=== PATIENT | male | born 1955 | race Hispanic/Latino ===

== ENCOUNTER 2016-07-14 02:30 | Inpatient (IN) | payer OTHER ==
[2016-07-14] VITALS (8 sets, daily range): BP systolic 85–136; BP diastolic 45–58; PULSE 62–103; RESP 19–28; O2SAT 94–98
[~2016-07-14] VITALS: Ht 175.3 cm; Wt 138.5 kg
[~2016-07-14 02:30] MED LIST: ASPI81TA53 PO; ATOR80TA77 PO; CLOP75TA3 PO; HYDR200T5 PO; LINE600T2 PO; METH2.5T PO; METO50TA3 PO; PRD5T PO; RANI300T4 PO
[2016-07-14] MEDS ORDERED: Linezolid Inj 600 MG in IV Premix 1 EACH IV ONE (03:05)
[2016-07-14] MEDS ORDERED: Clindamycin Inj 900 MG in IV Premix 1 EACH IV ONE (03:05)
[2016-07-14] MEDS ORDERED: Meropenem Inj 1,000 MG in 0.9% Sodium Chloride 100 ML IV ONE (03:05)
[2016-07-14 03:06] LABS: BASOPHILS % (AUTO) 0.1 % (0-3); EOSINOPHILS % (AUTO) 0.4 % (0-5); Mean Corpuscular Volume 91.6 fL (81-100); NEUTROPHILS % (AUTO) 82.4 % (40-74); Platelet Count 169 bil/L (150-400)
[2016-07-14] MEDS ORDERED: Ondansetron 2 mg/mL 2 mL Inj ONE ×2 (03:07→04:04)
[2016-07-14] MEDS ORDERED: Lactated Ringer's 1,000 ML IV ONE (03:09)
--- NOTE | 2016-07-14 03:11 | ED.REPORT ---
HPI-General Illness Date of Service Jul 14, 2016 ED Provider: Mahad Orona MD Patient is a 61 year old male with a history of diabetes mellitus, rheumatoid arthritis on chronic Prednisone, obstructive sleep apnea on CPAP, peripheral vascular disease, coronary artery disease with prior SC and cardiac stenting and lower extremity cellulitis positive for strep who presents to the ED with right leg swelling and pain that began last night. He reports fever at home of 102.7F (afebrile in the ED), chills, and increased pain tonight. He also developed shortness of breath this evening, especially with exertion. He admits to nausea but denies chest pain, abdominal pain, or cough. Nursing Notes Stated Complaint: R LEG INFECTION Chief Complaint: General Complaint Nursing Notes Reviewed: Yes Allergies: Coded Allergies: No Known Allergies (Verified Allergy, Unknown, 10/18/14) No Known Drug Allergies (Verified Allergy, Unknown, 07/14/16) Scheduled Aspirin (Aspir-Low) 81 Mg Tablet.dr 81 MG PO DAILY Atorvastatin Calcium (Atorvastatin Calcium) 80 Mg Tablet 80 MG PO HS Clopidogrel Bisulfate (Plavix) 75 Mg Tablet 75 MG PO Q48 Hydroxychloroquine Sulfate (Hydroxychloroquine Sulfate) 200 Mg Tablet 200 MG PO BID Linezolid (Zyvox) 600 Mg Tablet 600 MG PO BID Methotrexate Sodium (Methotrexate) 2.5 Mg Tablet 6 TAB PO QW Metoprolol Tartrate (Metoprolol Tartrate) 50 Mg Tablet 50 MG PO BID Prednisone (PredniSONE) 5 Mg Tab 5 MG PO DAILY Ranitidine (Ranitidine) 300 Mg Tablet 300 MG PO BID General Time Seen by MD: 02:39 Chief Complaint Other (right leg swelling and pain) Hx Obtained From: Patient Arrived By: Walk-in Sudden in Onset?: No Onset Occurred: Yesterday Symptom Duration: Since onset Location: : Leg right Quality: Painful Severity: Current: Moderate Severity: Maximum: Moderate Recent Healthcare: No recent doctor visit, No recent hospitalization Similar Sx Previous: Yes Past Medical History Past Medical History coronary artery disease with prior SC Rheumatoid arthritis venous insufficiency arthritis Reports: Diabetes mellitus, Hyperlipidemia, Hypertension Past Surgical History 2 cardiac stent placements Smoking History Former Smoker Social History Alcohol Use: Denies alcohol use Drug Use: Denies drug use Other Social History: Ambulatory Status Independent Review of Systems Full Review of Systems Constitutional: Reports: Chills, Fever Respiratory: Reports: Parox nocturnal dyspnea, Shortness of breath Cardiovascular: Denies: Chest pain GI: Reports: Nausea Musculoskeletal: Reports: Extremity pain, Extremity swelling Complete sys rev & neg: except as marked. Physical Exam Vital Signs Vital Signs Date Time Temp Pulse Resp B/P Pulse Ox O2 Delivery O2 Flow Rate FiO2 07/14/16 03:06 62 24 85/45 96 Room Air 07/14/16 02:34 36 70 24 85/55 95 Room Air Initial VS: Reviewed Skin: Warm, Dry, No cyanosis Neurologic: Alert, Oriented, Nonfocal Psychiatric: Mood/affect normal, Behavior normal, Normal thought content General/Constitutional: Awake, Alert, No acute distress Appearance / Presentation: Positive: Obese Head / Eyes: Normocephalic, PERRL, EOMI ENT: Airway patent Neck: Supple, No JVD Respiratory / Chest: Breath sounds NL, Breath sounds = bilat, No respiratory distress, No rales, No rhonchi, No wheezing Cardiovascular: Heart rate NL, Regular rhythm, Heart sounds NL, Peripheral circulation NL (intact distal pulses) Abdomen: Soft, Non-tender, No guarding, No rebound Upper Extremities Upper Extremity / MS: Neurologic intact, Vascular intact, No edema Lower Extremity / Pelvis / MS: Neurologic intact, Vascular intact Fat, swollen, and red right lower extremity extending up past the knee to the thigh, with a lymphangitic streak up the lateral right thigh. Left thigh is chronically red and swollen, with changes confined to the calf and ankle. Chronic venous stasis changes. Fungal infection on bilateral feet. Interpretation & Diagnostics Interpretation & Diagnostics: NEGATIVE FOR INFLUENZA TYPE A AND B Lab Results Interpretation Result Diagram: 07/14/16 0248 07/14/16 0248 Test 07/14/16 02:48 White Blood Count 16.7th/mm3 (3.8-10.1) Red Blood Count 5.33mil/mm3 (4.40-5.80) Hemoglobin 16.5g/dL (13.8-17.2) Hematocrit 48.8% (41.0-50.0) Mean Corpuscular Volume 91.6fL (81-100) Mean Corpuscular Hemoglobin 31.0pg (27.0-35.0) Mean Corpuscular Hemoglobin Concent 33.8% (32.0-37.0) Red Cell Distribution Width 14.4% (12.3-15.4) Platelet Count 169bil/L (150-400) Neutrophils (%) (Auto) 82.4% (40-74) Lymphocytes (%) (Auto) 8.0% (14-46) Monocytes (%) (Auto) 8.0% (4-12) Eosinophils (%) (Auto) 0.4% (0-5) Basophils (%) (Auto) 0.1% (0-3) Erythrocyte Sedimentation Rate 1mm/hr (0-30) Prothrombin Time 11.3sec (8.1-12.5) Prothromb Time International Ratio 1.05ratio Activated Partial Thromboplast Time 23.3sec (22.8-33.0) D-Dimer 1.7mg/L (<0.50) Sodium Level 139mEq/L (134-144) Potassium Level 3.5mEq/L (3.5-5.2) Chloride Level 104mEq/L (97-108) Carbon Dioxide Level 19mmol/L (18-29) Blood Urea Nitrogen 21mg/dL (6-24) Creatinine 1.10mg/dL (0.76-1.27) Estimat Glomerular Filtration Rate 73mL/min (>59) Glucose Level 138mg/dL (60-99) Calcium Level 8.6mg/dL (8.5-10.1) Phosphorus Level 1.2mg/dL (2.5-4.9) Magnesium Level 1.6mg/dL (1.6-2.6) Total Bilirubin 2.1mg/dL (0.0-1.2) Aspartate Amino Transf (AST/SGOT) 29U/L (0-50) Alanine Aminotransferase (ALT/SGPT) 35U/L (0-44) Alkaline Phosphatase 74U/L (25-160) Troponin T 0.010ug/L (0.0-0.011) Pro-B-Type Natriuretic Peptide 308.0pg/mL (0-210) Total Protein 6.6g/dL (6.4-8.4) Albumin 3.8g/dL (3.4-5.0) Lipase 30U/L (13-60) ECG Interpretation ECG Interpretation: Sinus Rhythm, Rate 66 Time: 02:47 Interpreted by: ED physician Normal ECG Interpretation: No acute ischemic changes X-Ray Chest Interpretation Chest Xray Interpretation: Impression: No pneumonia. Mild pulmonary congestion. View: Portable Interpretation / Wet Read by: Wet read ED physician Chest Xray Interpretation: Impression: Line in good position. No pneumothorax. Pulmonary congestion. View: Portable Interpretation / Wet Read by: Wet read ED physician Procedures Central Line Placement Central Line Placement Note: with ultrasound assist Time: 03:33 Procedure Performed by: ED physician Consent / Setup / Site Prep: Consent from patient (verbal unable to sign), Time-out performed, Oxygen administered, Pulse oximeter applied, secured entrance monitor applied, Hand hygiene observed, Standard surgical scrub, Max barrier precaution, Sterile drapes applied, Position supine, Position Trendelenburg Skin Preparation Agent: Hibiclens - Chlorhexidine Local Anesthesia: Lidocaine 1% Side / Location / Ultrasound: Internal jugular right (2nd attempt), Subclavian right (1st attempt, failed) Catheter / Lumen / Technique: Catheter size (7 Fr x 20 cm Power Injectable) , Triple lumen, Seldinger technique, Good blood return, Secured w catheter device Central Line Tip Location: Cath tip good position in the SVC Post-Procedure / Complications: Dressing placed, CXR neg for pneumothorax, Condition improved, Tolerated procedure well, Patient stable, Not stable post- procedure Re-Eval/Medical Decision Med Decision/Clinical Course 61-year-old with steroid-dependent arthritis, also methotrexate, diabetes, coronary disease, presents with fever chills cellulitis of the right leg and hypotension. He has elevated lactate, and has been quite resistant to fluid resuscitation. He received antibiotics promptly for his cellulitis after cultures were obtained. These included Zosyn linezolid and clindamycin. He remained borderline hypotensive and required pressor support. At that point a central line was placed in the right IJ position as detailed above. Subclavian was first attempted but unsuccessfully due to his bulk. No pneumothorax was seen on x-ray and the line is in good position. Even a single dose of Solu-Cortef 100 mg for presumptive adrenal suppression. He is admitted to the ICU to the medicine service. Source of Hx: Old records Time of Eval: 03:23 Re-Evaluation/Progress Note: Patient is becoming increasingly hypotensive, now at 63/47 after receiving fluids. He is also bradycardic at 50. He is started on Dopamine. Informed the patient and his son of the plan to admit him to the hospital for further care. Will need to place a central line in the ED. Time of Eval: 03:33 Re-Evaluation/Progress Note: Central line placed. Time of Eval: 04:20 Patient Status: Condition improved Re-Evaluation/Progress Note: Rechecked the patient, who has improved vital signs after central line placement. Consultation : Referral / Consult Name: Hao Peacock MD Consulted With: Hospitalist Call Returned at: 04:16 [place]: Will see patient, Agrees with eval, Agrees with plan, Accepts admit Note: Spoke with Dr. Peacock, hospitalist, who agrees to accept admit. Counseled Regarding: Diagnosis, Lab results, Need for admission Discharge & Departure Shift Change Sign-Out Response to Therapy: Improved Primary Impression: Cellulitis of right lower extremity Additional Impressions: Sepsis Sepsis type: sepsis due to unspecified organism Qualified Code: A41.9 - Sepsis, unspecified organism Hypotension Hypotension type: unspecified hypotension type Qualified Code: I95.9 - Hypotension, unspecified Septic shock Steroid dependence Immunosuppression Disposition: ADMITTED TO HOSPITAL Discharge Condition All VS Reviewed: Yes Condition: Critical Referrals: МАРИЯ TOBAR MD (PCP) Crit Care Except Billable Proc Time Spent: 30-74 minutes (1 hour) Services Performed: Patient management by me, Time spent at bedside, Reviewing test results, Reviewing imaging, Discussing patient care, Documentation in record, Time with fam/surrogate Scribe Attestation Portions of this note were transcribed by Edith Ramos. I, Dr. Orona personally performed the history, physical exam and medical decision-making; I reviewed and confirmed the accuracy of the information in the transcribed note. Signed by: Wayne Logan, 07/14/2016 0548 copies to: МАРИЯ TOBAR MD, Christopher W MD Jul 14, 2016 03:11 Edith Ramos Jul 14, 2016 03:31
[2016-07-14] MEDS: Lactated Ringer's 1,000 ML IV SCH ×8 (03:17→20:44)
[2016-07-14 03:21] LABS: TROPONIN T 0.01 ug/L (0.0-0.011)
[2016-07-14] MEDS ORDERED: DOPamine 800 mg/250 mL D5W Premix IV ONE ×2 (03:23→13:29)
[2016-07-14 03:36] LABS: INR 1.05 ratio
[2016-07-14 03:45] LABS: Magnesium 1.6 mg/dL (1.6-2.6); Phosphorus 1.2 mg/dL (2.5-4.9)
[2016-07-14] MEDS ORDERED: Lactated Ringer's 1,000 ML IV PRN (04:16)
[2016-07-14] MEDS ORDERED: Norepineph 8,000 mCg/250 mL NS 8,000 MCG in IV Premix 1 EACH IV PRN (04:16)
[2016-07-14] MEDS ORDERED: Acetaminophen IV 1,000 MG in IV Premix 1 EACH IV PRN (04:20)
[2016-07-14] MEDS ORDERED: Promethazine 12.5 mg/50 mL-NS 12.5 MG in IV Premix 1 EACH IV ONE (04:25)
[2016-07-14] MEDS ORDERED: Promethazine Inj 12.5 MG in Dextrose 5% 50 ML IV ONE (04:30)
[2016-07-14] MEDS ORDERED: Hydrocortisone 50 mg/mL 2 mL Inj IVPUSH ONE ×2 (04:35→05:50)
[2016-07-14] MEDS ORDERED: 0.9% Sodium Chloride 1,000 ML IV ONE ×2 (05:00→09:30)
--- NOTE | 2016-07-14 05:44 | PCM.HPMED ---
Subjective Date of Service Jul 14, 2016 Primary Provider: Admitting Physician: Hao Peacock MD Primary Care Physician: Vanesa Pennington MD Attending Physician: Hao Peacock MD Admit Status: From the Emergency Department, Critical Care Chief Complaint: Leg swelling and feeling sick History of Present Illness: Faizan Christine is a 61 year old male with Diabetes mellitus, rheumatoid arthritis on Prednisone, obstructive sleep apnea on CPAP, peripheral vascular disease, coronary artery disease with prior NV and cardiac stenting who presents to [facility] Emergency department with right leg swelling and pain that began last night. Associated symptoms includes fever at home of 102.7F and chills, and increased pain tonight. He also reports developed shortness of breath this evening, especially with exertion. He admits to nausea but denies chest pain, abdominal pain, or cough. Denies any trauma on the leg and no insect bites or scratching. Family reported that the patient was confused and not himself tonight. He was at baseline 2 days ago and went to work. Patient had prior history of cellulitis in 2014. He has Rheumatoid arthritis and is on immunosuppressant agents including daily Prednisone. Case discussed with Dr Orona, Hypotension on admission, fluids given and eventually Dopamine started. Broad spectrum antibiotics started, Influenza test negative. Review of Systems: Pertinent positives as noted in HPI. All other systems were reviewed and are negative Allergies Coded Allergies: No Known Allergies (Verified Allergy, Unknown, 10/18/14) No Known Drug Allergies (Verified Allergy, Unknown, 07/14/16) Home Medications From [facility], not yet confirmed Faizan Christine [id number] 1955 02/18/2016 01:40 PM 06/30 Aspirin Low Dose 81 mg tablet,delayed release take 1 tablet by oral route every day atorvastatin 80 mg tablet take 1 tablet by oral route every day at bedtime hydrocodone 5 mg-acetaminophen 325 mg tablet take 1 - 2 Tablet by oral route every 4 - 6 hours as needed for pain hydroxychloroquine 200 mg tablet take 1 tablet by oral route 2 times every day lisinopril 5 mg tablet take 1 tablet by oral route every day methotrexate sodium 2.5 mg tablet Take 6 tablets by mouth weekly metoprolol tartrate 50 mg tablet take 1 tablet by oral route 2 times every day with meals Plavix 75 mg tablet take 1 tablet by oral route every 2 days to prevent blood clots prednisone 5 mg tablet take 1 tablet by oral route every day ranitidine 300 mg tablet take 1 - 2 Tablet by oral route every day PMH 1. Rheumatoid arthritis. 2. Coronary artery disease s/p Drug eluting stent 3. Obstructive sleep apnea, on CPAP. 4. Hyperlipidemia 5. 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 Hx Alcohol Use: No Hx Substance Use: No Hx Tobacco Use: Yes Smoking Status: Former Smoker Living Arrangement: with Family Exam Vital Signs Vital Sign - Last Date Time Temp Pulse Resp B/P Pulse Ox O2 Delivery O2 Flow Rate FiO2 07/14/16 03:06 62 24 85/45 96 Room Air 07/14/16 02:34 36 Intake and Output 07/13/16 07/13/16 07/14/16 Cumulative From/Thru 15:00 23:00 07:00 07/14/16 02:34 - 07/14/16 03:01 Intake Total 1000 ml 1000 ml Balance 1000 ml 1000 ml Intake IV Total 1000 ml 1000 ml Exam General: Alert, Oriented X3, Cooperative, No acute Distress Eyes: PERRLA, Scleral Anicteric Mouth: Mouth Normal, Mucous Membranes Moist/[place] Neck: Supple, no Thyromegaly, trachea central. Chest & Lungs: Clear to auscultation & percussion, No adventitious breath sounds, no crackles, no wheeze Cardiovascular: Normal S1, Normal S2, No Murmurs/Rubs/Gallops, Regular Rate/ Rhythm, (No JVD, no peripheral edema) Pulses: Radial (present and equal), Dorsalis Pedi (present and equal) Abdomen: Soft, Non-tender, Non-distended, Normoactive bowel tones. Musculoskeletal: Unremarkable. Normal range of motion, no swollen or erythematous joints Extremities: No edema, no cyanosis, no clubbing. Skin: Right leg cellulitis with erythema, venous stasis changes in both legs Neurological: Grossly neurologically intact, Normal Speech, Sensation Intact Lymphatic: Lymph nodes Cervical and Axillary not palpable. Lab and Diagnostics Labs Laboratory Tests Test 07/14/16 02:48 White Blood Count 16.7th/mm3 (3.8-10.1) Red Blood Count 5.33mil/mm3 (4.40-5.80) Hemoglobin 16.5g/dL (13.8-17.2) Hematocrit 48.8% (41.0-50.0) Mean Corpuscular Volume 91.6fL (81-100) Mean Corpuscular Hemoglobin 31.0pg (27.0-35.0) Mean Corpuscular Hemoglobin Concent 33.8% (32.0-37.0) Red Cell Distribution Width 14.4% (12.3-15.4) Platelet Count 169bil/L (150-400) Neutrophils (%) (Auto) 82.4% (40-74) Lymphocytes (%) (Auto) 8.0% (14-46) Monocytes (%) (Auto) 8.0% (4-12) Eosinophils (%) (Auto) 0.4% (0-5) Basophils (%) (Auto) 0.1% (0-3) Erythrocyte Sedimentation Rate 1mm/hr (0-30) Prothrombin Time 11.3sec (8.1-12.5) Prothromb Time International Ratio 1.05ratio Activated Partial Thromboplast Time 23.3sec (22.8-33.0) D-Dimer 1.7mg/L (<0.50) Sodium Level 139mEq/L (134-144) Potassium Level 3.5mEq/L (3.5-5.2) Chloride Level 104mEq/L (97-108) Carbon Dioxide Level 19mmol/L (18-29) Blood Urea Nitrogen 21mg/dL (6-24) Creatinine 1.10mg/dL (0.76-1.27) Estimat Glomerular Filtration Rate 73mL/min (>59) Glucose Level 138mg/dL (60-99) Lactic Acid Level 2.9mmol/L (0.4-2.0) Calcium Level 8.6mg/dL (8.5-10.1) Phosphorus Level 1.2mg/dL (2.5-4.9) Magnesium Level 1.6mg/dL (1.6-2.6) Total Bilirubin 2.1mg/dL (0.0-1.2) Aspartate Amino Transf (AST/SGOT) 29U/L (0-50) Alanine Aminotransferase (ALT/SGPT) 35U/L (0-44) Alkaline Phosphatase 74U/L (25-160) Troponin T 0.010ug/L (0.0-0.011) Pro-B-Type Natriuretic Peptide 308.0pg/mL (0-210) Total Protein 6.6g/dL (6.4-8.4) Albumin 3.8g/dL (3.4-5.0) Lipase 30U/L (13-60) Microbiology 07/14/16 Blood Culture, Received Pending 07/14/16 Influenza Screen - Final, Complete Result Diagram: 07/14/168 07/14/168 Assessment & Plan Faizan Christine is a 61 year old male with Diabetes mellitus, rheumatoid arthritis on Prednisone, obstructive sleep apnea on CPAP, peripheral vascular disease, coronary artery disease with prior NV and cardiac stenting who presents to [facility] Emergency department with Right Leg cellulitis with Septic shock, currently managed in the ICU 1. Septic shock. Present on admission Meeting SIRS criteria with leukocytosis, hypotension with source skin infection. Patient hypotensive on admission, non responsive to IV fluids resuscitations and was started on Pressors. Hypotension likely combination of dehydration, antihypertensive medications and possible Adrenal insufficiency. Several evidence of organ dysfunction with lactic acidosis, hypotension and mild encephalopathy - IV fluids resuscitations - Hydrocortisone 100 mg IV - Levophed drip with goal MAP > 65 2. Acute Right lower extremity cellulitis. Present on admission Prior cellulitis with Strep in 2014, treated with Linezolid. Patient is immunocompromised from treatment for Rheumatoid infection. Unclear why patient has recurrent cellulitis. - continuing Linezolid IV - keep leg elevated - consider Infectious Disease consultation 3. Lactic acidosis. Present on admission - Due to tissue hypoxia from infection - trending till levels normalize 4. Rheumatoid arthritis - continue steroids at usual home dose, and Plaquenil. - hold Methotrexate 5 Coronary artery disease, s/p stents 2006. Appears to be stable. No anginal or equivalent complaints - Continue statin Aspirin and Plavix - holding Metoprolol and Lisinopril 6 Obstructive sleep apnea with Morbid Obesity Requested that family bring in CPAP machine. - Acetaminophen as needed for mild pain/fever/headache - Bowel regimen as needed - Antiemetic as needed Patient admitted under inpatient status with expected length of stay > 2 midnights for severity of present symptoms, complexities of treatment plan and risk for adverse event . Resuscitation Status: CPR: Attempt Resuscitation Time spent 1 hour critical care time Hao Peacock MD Jul 14, 2016 04:28
--- NOTE | 2016-07-14 06:08 | ABG ---
DateTimeAnalyzed 06:03:00 -_ pH ____7.297 - 7.350 7.450 pCO2 ___45.6__ -mmHg 35.0 45.0 pO2 ___43.4__ -mmHg 69.0 116 HCO3- ___21.6__ -mmol/L 22.0 26.0 ABE ___-4.6__ -mmol/L -2.0 2.0 tHb ___15.7__ -g/dL O2Hb ___74.8__ -% COHb ____0.6__ -% MetHb ____0.8__ -% sO2 ___75.9__ -% 25.0 FIO2 ___35.0__ -% Drawn By MM - Date/Time Notified____ 06:08:00 -_ Liter_Flow ____4.0__ -L/min Oxygen Device 1 SIMP MASK - Notified By MM - Notified Whom RN - B 743 -mmHg tO2 ___16.4__ -Vol% Usama test _Positive -
[2016-07-14] MEDS ORDERED: 0.9% Sodium Chloride 0 ML ONE (07:13)
[2016-07-14] MEDS ORDERED: Potassium Phos (mEq) Inj 40 MEQ in Dextrose 5% 500 ML IV ONE (07:25)
--- NOTE | 2016-07-14 07:38 | NUR ---
Pt admitted from ED with RLE cellulitis and sepsis, with elevated Lactic acid and hypotension. Received ~6 liters in ED for volume resuscitation and dopamine at 7.5 mcg/kg/min to help with blood pressures. Was nauseous and received iv zofran with minimal effect so a phenergan gtts infused with good effect. Came to CCU around 0445 tachycardic, a febrile, hypotensive and low saturations in the mid to upper 80's. Oxy mask placed on patient and sat's improved minimally. ABG obtained and 7.29, 46, 43.4,21.6 So pt placed on non-rebreather to help oxygenation, awaiting another ABG to determine improvement. Son and daughter at bedside initially, son left and daughter still at bedside. Lowery inserted with good urine output, 650 ml's. Right IJ placed in ED and is oozing at site, oncoming RN notified. Will continue to support and monitor.
[2016-07-14] MEDS: Heparin 5,000 Unit/mL Inj SUBQ SCH ×2 (07:58→16:26)
[2016-07-14] MEDS ORDERED: Influenza (Adult) Vaccine 0.5 mL Syringe IM ONE (08:30)
[2016-07-14] MEDS ORDERED: Linezolid Inj 600 MG in IV Premix 1 EACH IV SCH (08:30)
[2016-07-14 09:22] LABS: APPEARANCE,URINE HAZY (CLEAR,HAZY); COLOR,URINE STRAW (YELLOW); OCCULT BLOOD,URINE TRACE (NEGATIVE); UROBILINOGEN,URINE NORMAL (NORMAL)
[2016-07-14] MEDS ORDERED: cefTRIAXone Inj 2,000 MG in IV Premix 1 EACH IV SCH (10:05)
--- NOTE | 2016-07-14 10:15 | DRSVH ---
PROCEDURE: X-RAY CHEST ONE VIEW, PORTABLE ([id number]) INDICATIONS: weakness TECHNIQUE: One view of the chest was acquired. COMPARISON: None. FINDINGS: Surgical changes and devices: None. Lungs and pleura: No pleural effusions or pneumothorax. Lungs are clear and interstitial is promine nt. Mediastinum: Mediastinal contours appear normal. Heart size is normal. Bones and chest wall: No suspicious bony lesions. Overlying soft tissues appear unremarkable. IMPRESSION: Prominent interstitium and developing edema or atypical infection cannot be excluded. Co rrelate clinically. Dictated by: Shady Willis RRA Interpreted: Zaria Martinez MD on 07/14/2016 at 10:15 Transcribed by: RACHEL on 07/14/2016 at 10:15 Approved by: Zaria Martinez MD, PhD on 07/14/2016 at 16:34
--- NOTE | 2016-07-14 10:18 | DRSVH ---
PROCEDURE: X-RAY CHEST ONE VIEW, PORTABLE ([id number]) INDICATIONS: CENTRAL LINE PLACEMENT TECHNIQUE: One view of the chest was acquired. COMPARISON: [facility], CR, XR CHEST 1VW (PORTABLE), 07/14/2016, 2:37. FINDINGS: Surgical changes and devices: Right IJ CVL has been placed tip projected over the mid to lower SVC Lungs and pleura: Moderate, diffuse bilateral interstitial opacities are present. Mediastinum: Mediastinal contours appear normal. Heart size is prominent. Bones and chest wall: No suspicious bony lesions. Overlying soft tissues appear unremarkable. IMPRESSION: 1. Placement of right IJ CVL. 2. Pulmonary edema versus atypical infection increased from prior examination. Correlate clinically. Dictated by: Shady Willis RRA Interpreted: Zaria Martinez MD on 07/14/2016 at 10:18 Transcribed by: RACHEL on 07/14/2016 at 10:18 Approved by: Zaria Martinez MD, PhD on 07/14/2016 at 16:34
--- NOTE | 2016-07-14 10:39 | NUR ---
Infection Prevention Patient placed in contact and droplet precautions due to diagnosis of invasive group A streptococcal infection per Dr. Funez.
--- NOTE | 2016-07-14 11:00 | CONS ---
[address] [address] CONSULTATION REPORT PATIENT: CLEMENT SEGAL : 1955 MR#: [id number] ADMIT: 07/14/2016 JOB ID: [id number] DATE OF SERVICE: 07/14/2016 INFECTIOUS DISEASE CONSULTATION: I thank Dr. Usaam Butler for this consult. REASON FOR CONSULTATION: Right lower extremity streptococcal cellulitis with septic shock. HISTORY OF PRESENT ILLNESS: The patient is a 61-year-old gentleman well known to me from a prior admission during which he was admitted with a severe cellulitis which was found to be on the basis of group A strep. He recovered from that which occurred a couple years ago. In the intervening two years he has had one additional episode of very severe cellulitis of the right lower extremity. Both the patient and his tell us that this occurs about once a year. About three weeks ago, the patient noticed increase in his bilateral lower extremity edema which was more on the right than the left. This is a common situation for the patient. 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 This progressed overnight and the patient's adult son brought him to the hospital where he was admitted today. At the time of admission, he was found to be febrile as well as hypotensive. Broad-spectrum antibiotics were started and he was admitted to the ICU with fluid boluses and IV dopamine going. This morning we were able to interview the patient, who is awake though will little bit sleepy perhaps. He tells us he was feeling really quite well until late yesterday with the sudden onset of the right lower extremity pain, fevers, chills and diffuse weakness which led to his admission this morning. He notes that his legs swell and then get better on an on-and-off basis and that at least once a year or more his right lower extremity turns hot and tender which at least on some occasions has led to admission to the hospital for IV antibiotics as well as sometimes outpatient oral antibiotics. The patient tries to keep his legs up but he is a business analyst manager so it is hard for him to do that during the day. He also tries to keep his legs moist and sometimes wears compression stockings to help with this situation. In association with his admitting symptoms, he had some mild shortness of breath, some nausea but without vomiting and no significant headache or neurologic complaint. PAST MEDICAL HISTORY: 1. Coronary artery disease status post stents. 2. Rheumatoid arthritis for which he receives methotrexate and oral steroids. He has also been treated in the past with hydroxychloroquine for his RA. 3. Obstructive sleep apnea. 4. Hyperlipidemia. 5. Morbid obesity with BMI 50. 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 He was a smoker until 2004, then quit. He does not drink alcohol and lives with his family in the local area. FAMILY HISTORY: Negative for tuberculosis. REVIEW OF SYSTEMS: The patient has no headache or visual change. He denies sore throat. No trouble swallowing. He has minimal shortness of breath without significant cough. He has no abdominal pain or vomiting but has had some nausea. No difficulty with urination, nocturia, urgency, frequency, dysuria. He has chronic swelling of both lower extremities, always worse on the right and the above-mentioned history of cellulitis starting in the right leg. PHYSICAL EXAMINATION: Reveals an afebrile gentleman, temperature 37.9. He has been afebrile since he came into the ED around midnight. Actually he was initially hypothermic at 36, he is now at 36.9. Pulse 95, respiratory rate 24, blood pressure 118/58, saturating well but on a non-rebreather mask this morning. He is a bit groggy but easily arouses and is lucid and able to offer a history. He has had no evidence of head trauma. His eyes are without conjunctivitis or scleral icterus. Extraocular movements are normal. Oral cavity: No thrush or hairy leukoplakia. Mucous membranes are dry from the mask. No cervical adenopathy. Lungs relatively clear anteriorly. Cardiac tones: Regular rate and rhythm with no significant murmur. Abdomen is quite obese but soft and nontender without organomegaly. The scrotum, testes, penis appear normal. No inguinal adenopathy was appreciated. Bilateral lower extremity edema below the knees is present with venous stasis changes. In the feet there are diminished but palpable arterial pulses. Capillary refill in both feet is a bit slow. On the right lower extremity below the knee, there is an erythrodermic hue to the skin and this erythema is confluent from the knee to the ankle. It is quite warm and tender to the touch. No bullae or blistering are seen. The patient is neurologically intact. Labs include white count 16,700, 82% segs. Creatinine is 1.1. Note that when he was seen here a couple years ago with cellulitis his creatinine was 2.5, so it is dramatically better for whatever reason. His LFTs are normal except for a bilirubin 2.1. A procalcitonin is 8.65. Lactic acid is down to 2.4. In reviewing serologies from his September 2014 admission, he was hep B negative as well as hep C negative. An anti DNASE-B titer was strongly positive consistent with a diagnosis in September 2014 of streptococcal infection. Labs from this admission include blood cultures and a MRSA screen which are pending. A flu screen was also done and that was negative. . IMAGING: Includes a chest x-ray done this morning which I have not examined at this time as is not available yet on the screen. 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 This is a severe event as it started only hours ago and the patient is already in septic shock requiring vasopressor agents and fluid boluses. This is the third episode in the past three years by the patient and his family's report. The one in 2014 required a fairly lengthy admission here at [facility], and this one, of course, has landed him in the ICU. In between he had another significant episode which was treated with 10 days of an unknown oral antibiotic. Recurrent streptococcal cellulitis is common in people with venous insufficiency which this patient obviously has as well as in the morbidly obese. The general preventive measures including keeping legs elevated, keeping legs moisturized and using compression stockings. In severe cases where this condition recurs on a very frequent basis, chronic prophylaxis with clindamycin daily or amoxicillin twice daily can be attempted. Whether or not this patient warrants that is unclear as he only gets about one episode a year but when he does it tends to be quite nasty. The optimal management of this probably involves either the use of clindamycin or linezolid as these antibiotics have the capacity to turn off toxin production. Also useful in these cases can be a beta-lactam. I suspect this patient will improve dramatically with aggressive hydration and we will soon be able to wean him off his vasopressor agents. Our main efforts should be in terms of preventing additional episodes. RECOMMENDATIONS: 1. I would treat this patient according to the classic method for treating a severe group A streptococcal sepsis with clindamycin and ceftriaxone. One could also use clindamycin and penicillin but I think in this case the ceftriaxone would be simpler. Will go ahead and make these changes in terms of his antibiotic regimen. 2. Once the patient improves substantially, could probably discharge on amoxicillin or an oral cephalosporin. 3. The patient should be encouraged to use his compression stockings, keep his legs moisturized and elevated when possible. In addition he needs to lose an enormous amount of weight as though he does not appear super obese just at first glance, he actually is with a BMI of 50 and a total weight exceeding 335 pounds. If the patient could lose even 50 pounds I suspect some of this problem with recurrent streptococcal cellulitis would improve as would his overall health given he has a history of underlying coronary artery disease. 4. Will check ASO titer and again anti DNASE-B to try and confirm the diagnosis.
[2016-07-14] MEDS: Clindamycin Inj 900 MG in IV Premix 1 EACH IV SCH ×2 (11:31→16:26)
[2016-07-14 12:01] LABS: Mean Corpuscular Hemoglobin 31.2 pg (27.0-35.0); Mean Corpuscular Volume 92.6 fL (81-100)
--- NOTE | 2016-07-14 13:04 | PCM.PNMED ---
Subjective Date of Service Jul 14, 2016 Subjective The patient is lethargic and minimally communicative. The patient's family notes that he does appear to be feeling better and slightly more alert than earlier in the night. ROS and subjective otherwise not obtainable. Exam Vital Signs Vital Sign - Last Date Time Temp Pulse Resp B/P Pulse Ox O2 Delivery O2 Flow Rate FiO2 07/14/16 11:35 36.8 86 22 113/58 97 OxyMask 10.00 Intake and Output 07/13/16 07/13/16 07/14/16 Cumulative From/Thru 15:00 23:00 07:00 07/14/16 02:34 - 07/14/16 07:00 Intake Total 49038 ml 78309 ml Output Total 1300 ml 1300 ml Balance 85395 ml 66286 ml Intake IV Total 37564 ml 55097 ml Output Urine Total 1300 ml 1300 ml Exam Patient appears comfortable, no distress. Normal skull Neck supple. Lungs are clear, normal effort. Heart is regular without murmur gallop or rub Abdomen is soft nondistended. Extremities free of edema. The right leg is warm and confluence with erythema and there is no obvious fluctuance. IVs and Medications Medications Reviewed: Medications were reviewed in detail Lab and Diagnostics Result Diagram: 07/14/16 1155 07/14/16 1155 Assessment & Plan Faizan Christine is a 61 year old male with Diabetes mellitus, rheumatoid arthritis on Prednisone, obstructive sleep apnea on CPAP, peripheral vascular disease, coronary artery disease with prior [place] and cardiac stenting who presents to [facility] Emergency department with Right Leg cellulitis with Septic shock, currently managed in the ICU 1. Septic shock. Present on admission Meeting SIRS criteria with leukocytosis, hypotension with source skin infection. Patient hypotensive on admission, non responsive to IV fluids resuscitations and was started on Pressors. Hypotension likely combination of dehydration, antihypertensive medications and possible Adrenal insufficiency. Several evidence of organ dysfunction with lactic acidosis, hypotension and mild encephalopathy - IV fluids resuscitations - Hydrocortisone 100 mg IV - Levophed drip with goal MAP > 65 We will give the patient additional fluid boluses morning to see if we can then assist in weaning him off from his pressor. 2. Acute Right lower extremity cellulitis. Present on admission Prior cellulitis with Strep in 2014, treated with Linezolid. Patient is immunocompromised from treatment for Rheumatoid infection. Unclear why patient has recurrent cellulitis. - continuing Linezolid IV - keep leg elevated -And request infectious disease consultation. His syndrome appears to be staph or strep clinically. 3. Lactic acidosis. Present on admission - Due to tissue hypoxia from infection - trending till levels normalize, continue fluid resuscitation. 4. Rheumatoid arthritis -We will institute high-dose steroids given his chronic steroid use., and Plaquenil. - hold Methotrexate 5 Coronary artery disease, s/p stents 2006. Appears to be stable. No anginal or equivalent complaints - Continue statin Aspirin and Plavix - holding Metoprolol and Lisinopril 6 Obstructive sleep apnea with Morbid Obesity Requested that family bring in CPAP machine. - Acetaminophen as needed for mild pain/fever/headache - Bowel regimen as needed - Antiemetic as needed Patient admitted under inpatient status with expected length of stay > 2 midnights for severity of present symptoms, complexities of treatment plan and risk for adverse event . Resuscitation Status: CPR: Attempt Resuscitation Time spent 25 minutes Usama Butler MD Jul 14, 2016 13:04
[2016-07-14] MEDS: DOPamine 800 mg/250 mL D5W 800,000 MCG in IV Premix 1 EACH IV SCH (15:00)
--- NOTE | 2016-07-14 15:35 | NUR ---
NUTRITION ASSESSMENT Assess: 61 yo M w/ sepsis secondary to cellulitis of rt lower extremity. Pt is lethargic and not very interactive, requiring oxymask. PMHx: RA, CAD s/p drug eluding stent, JAMILAH on CPAP, HLD, GERD, Diabetes LABS: Reviewed. Glu 138, Lactic Acid 3.9, Phos 1.2, T-bili 2.1 MEDICATIONS: Reviewed. LR @ 150 ml/hr DIET: Heart Healthy, No PO recorded NUTRITION FOCUSED PHYSICAL ASSESSMENT: GI symptoms/stool: No BM reportedBraden: 20 Skin integrity: Cellulitis of rt lower extremity Overall Appearance: Obese man laying in bed with oxymask in place ANTHROPOMETRICS: Current Wt: 153.3 kg BMI: 49.9 kg/q8Adgpx Wt: 153.3 kg IBW: 72.7 kgAdj BW: 92.9 kg Recent wt changes: None noted ESTIMATED NEEDS: Calories: 6836-3112 kcal/d (25-30 kcal/kg/d Adj BW) Protein: 110-140 g/d (1.2-1.5 g/kg/d Adj BW) Fluids: 0877-6470 ml/d (1 ml/kcal/d) NUTRITION DIAGNOSIS: 1) Inadequate oral intake related to respiratory failure and lethargy as evidenced by need for O2 supplementations and no PO intake. INTERVENTION: 1) Will continue to monitor and add supplements or recommend nutrition support as needed. MONITOR/EVALUATE: Mentation, PO intake, Labs, Wt, Nutrition status, POC. Will follow per moderate nutrition risk guidelines.
[2016-07-14] MEDS: Hydrocortisone 50 mg/mL 2 mL Inj IVPUSH SCH (16:26)
--- NOTE | 2016-07-14 17:49 | NUR ---
Social Work: Screen D: Per EMR review, pt is a 61 year old male admitted for sepsis cellulitis hypotension. Pt is [facility] with [facility]. PCP Is Paola Pennington MD. NOK is Elijah Christine, son. Readmit score not entered at this time. Pt lives in [place] with his family. Pt currently very lethargic with minimal responsiveness. Pt's POLF is unknown at this time. Pt currently on 8L oxymask. A: Pt currently in CCU bed P: Evolving; [employer] COUNTER[employer]ERSON to continue to follow pt's clinical course and determine discharge needs. HITESH Gordon
--- NOTE | 2016-07-14 18:43 | NUR ---
Note Patient remained on dopamine drip throughout the shift- initial dose this morning was 7.5mcg/kg/min and during the shift drip was gradually decreased to 5.5mcg/kg/min.MAP remained 60-70 but was unable to titrate dopamine below this level so far-Patient received NS 1L bolus over 4h in addition to maintenance LR at 150ml/h to stabilize him farther. Heart rate decreased from 100-110 to 70-80 beats per min and sinus rhythm. Patient complained of generalized body ache- medicated with Tylenol IV x and symptoms resolved. Patient denied having nausea during the shift but refused his meals so far. He stated that he did not fell like eating and his appetite was off. He was able to tolerate PO ice chips and ice water. MD asked for Lowery catheter to be removed. Patient stated that at home he need to sit and often to stand to urinate and he did not think he could urinate while in bed- Lowery catheter was not removed at this time- continue assessment.
[2016-07-14] MEDS: HYDROcodone-APAP 5-325 mg Tablet PO PRN (22:55)
[2016-07-15] VITALS (8 sets, daily range): BP systolic 101–118; BP diastolic 53–61; PULSE 74–88; RESP 18–24; O2SAT 94–98
[2016-07-15] MEDS: Heparin 5,000 Unit/mL Inj SUBQ SCH ×3 (00:38→16:35)
[2016-07-15] MEDS: Hydrocortisone 50 mg/mL 2 mL Inj IVPUSH SCH ×3 (00:38→15:55)
[2016-07-15] MEDS: Clindamycin Inj 900 MG in IV Premix 1 EACH IV SCH ×3 (00:39→15:55)
[2016-07-15 01:48] LABS: Magnesium 1.7 mg/dL (1.6-2.6); Phosphorus 3.3 mg/dL (2.5-4.9)
[2016-07-15] MEDS: Lactated Ringer's 1,000 ML IV SCH ×2 (03:07→05:42)
--- NOTE | 2016-07-15 05:29 | NUR ---
Labs/Lowery/Sleep/CPAP Repeat labs ordered to recheck LA, Mg, K, and Phos. Labs came back astable and WNL. Pt reports that he would like to keep his Lowery in at least until the morning so he can rest and not worry about waking up to try and void in a urinal. Care clustered for limited interruptions. Pt did not want to be turns and reports he would self turn and be aware of turning when he is awake. CPAP set up at bedside by RT with a 6L bleed in. Pt wore CPAP appropriately throughout night with SpO2 high 90s. Will continue to monitor. Care ongoing
--- NOTE | 2016-07-15 07:49 | PCM.PNMED ---
Subjective Date of Service Jul 15, 2016 Subjective Doing well. His right leg feels less tender perhaps less warm. He still feels somewhat run down. No chest pain or abdominal pain nausea or vomiting. He does have some anorexia. Exam Vital Signs Vital Sign - Last Date Time Temp Pulse Resp B/P Pulse Ox O2 Delivery O2 Flow Rate FiO2 07/15/16 05:41 36.6 74 20 118/58 97 CPAP 6.00 Intake and Output 07/14/16 07/14/16 07/15/16 Cumulative From/Thru 15:00 23:00 07:00 07/14/16 02:34 - 07/15/16 06:49 Intake Total 4048 ml 2514 ml 80621 ml Output Total 3700 ml 1300 ml 6300 ml Balance 348 ml 1214 ml 43255 ml Intake Oral 400 ml 200 ml 600 ml IV Total 3648 ml 2314 ml 35496 ml Output Urine Total 3700 ml 1300 ml 6300 ml # Bowel Movements 0 0 Exam Alert oriented 3. No distress. Fluent speech. Anicteric sclerae Neck supple Lungs are clear with normal effort. Heart is regular without murmur gallop or rub Abdomen soft nontender. Extremities 1+ edema bilateral, venous stasis dermatitis Right leg is warm but less warm. Also tender. No fluctuance. Good pedal pulses. IVs and Medications Medications Reviewed: Medications were reviewed in detail Lab and Diagnostics Result Diagram: 07/14/16 1155 07/15/16 0040 Assessment & Plan Faizan Christine is a 61 year old male with Diabetes mellitus, rheumatoid arthritis on Prednisone, obstructive sleep apnea on CPAP, peripheral vascular disease, coronary artery disease with prior [place] and cardiac stenting who presents to [facility] Emergency department with Right Leg cellulitis with Septic shock, currently managed in the ICU 1. Septic shock. Present on admission. Improved. Meeting SIRS criteria with leukocytosis, hypotension with source skin infection. Patient hypotensive on admission, non responsive to IV fluids resuscitations and was started on Pressors. Hypotension likely combination of dehydration, antihypertensive medications and possible Adrenal insufficiency. Several evidence of organ dysfunction with lactic acidosis, hypotension and mild encephalopathy We will continue fluids at 100 hour. 2. Acute Right lower extremity cellulitis. Present on admission, improving. Prior cellulitis with Strep in 2014, treated with Linezolid. Patient is immunocompromised from treatment for Rheumatoid infection. Unclear why patient has recurrent cellulitis. We will continue ceftriaxone and clindamycin per ID for probable streptococcal cellulitis. Blood cultures remain negative. 3. Lactic acidosis. Present on admission, resolved. 4. Rheumatoid arthritis -We will institute high-dose steroids given his chronic steroid use., and Plaquenil. - hold Methotrexate 5 Coronary artery disease, s/p stents 2006. Appears to be stable. No anginal or equivalent complaints - Continue statin Aspirin and Plavix - holding Metoprolol and Lisinopril 6 Obstructive sleep apnea with Morbid Obesity Requested that family bring in CPAP machine. 7. Relative chronic adrenal insufficiency. POA. We will continue stress dose hydrocortisone at this 0.100 mg IV every 8 hours. - Acetaminophen as needed for mild pain/fever/headache - Bowel regimen as needed - Antiemetic as needed Patient admitted under inpatient status with expected length of stay > 2 midnights for severity of present symptoms, complexities of treatment plan and risk for adverse event . Resuscitation Status: CPR: Attempt Resuscitation Time spent 25 minutes Usama Butler MD Jul 15, 2016 07:49
[2016-07-15] MEDS: 0.9% Sodium Chloride 1,000 ML IV SCH ×2 (07:50→20:45)
[2016-07-15 08:08] LABS: Mean Corpuscular Hemoglobin 30.8 pg (27.0-35.0); Mean Corpuscular Volume 93.4 fL (81-100)
[2016-07-15] MEDS: cefTRIAXone Inj 2,000 MG in Dextrose 5% Minibag Plus 50 ML IV SCH (10:05)
[2016-07-15] MEDS: DOPamine 800 mg/250 mL D5W 800,000 MCG in IV Premix 1 EACH IV SCH (11:44)
[2016-07-15] MEDS: Ondansetron 2 mg/mL 2 mL Inj IVPUSH PRN (12:05)
[2016-07-15] MEDS: HYDROcodone-APAP 5-325 mg Tablet PO PRN (12:42)
--- NOTE | 2016-07-15 14:44 | NUR ---
Hemodynamics/cardiac/pain Dopamine gtt turned off at noon, MAP maintained > 65 without pressor support. Continues in SR per security manager. NS infusing as ordered. Afebrile. PRN norco administered for complaints of pain in lower extremities and head, pain improved with current medication regiment. Suboptimal appetite, tolerating only sips of juice and saltines. Blood glucose controlled at this time. Dr Butler contacted and updated on pt status, orders to downgrade pt to progressive care received.
--- NOTE | 2016-07-15 22:22 | NUR ---
Transfer of care Pt transfered [place] [facility] [place] [facility]006 with PCC status in bed and in stable condition with all belongings. Report given to Guy Courtney RN. Pt was able to ambulate from bed to bed. Care ongoing
[2016-07-16] VITALS (8 sets, daily range): BP systolic 109–128; BP diastolic 66–71; PULSE 74–83; RESP 18–20; O2SAT 94–96
[2016-07-16] MEDS: Clindamycin Inj 900 MG in IV Premix 1 EACH IV SCH ×3 (00:06→16:11)
[2016-07-16] MEDS: Hydrocortisone 50 mg/mL 2 mL Inj IVPUSH SCH ×2 (00:06→07:49)
[2016-07-16] MEDS: Heparin 5,000 Unit/mL Inj SUBQ SCH ×3 (00:06→16:10)
[2016-07-16] MEDS: HYDROcodone-APAP 5-325 mg Tablet PO PRN ×2 (00:08→20:00)
--- NOTE | 2016-07-16 04:14 | NUR ---
Transfer of Care Pt arrived to [facility] room 3006 at approx. 2220 from [facility] via bed, report received from Rupa Willson RN. All belongings transferred with pt. Pt reports pain at 6/10 to RLE, but denied intervention until HS - 2 [place] administered at approx. 0008 with relief upon reassessment. Pt on RA with SpO2 >95%; home CPAP with pt and applied at HS without O2 bleed. VSS, tele SR 80s.
[2016-07-16] MEDS: 0.9% Sodium Chloride 1,000 ML IV SCH ×2 (04:34→15:02)
[2016-07-16] MEDS: cefTRIAXone Inj 2,000 MG in Dextrose 5% Minibag Plus 50 ML IV SCH (07:47)
[2016-07-16 09:41] LABS: BASOPHILS % (AUTO) 0.1 % (0-3); EOSINOPHILS % (AUTO) 0.1 % (0-5); MONOCYTES % (AUTO) 5.2 % (4-12); Mean Corpuscular Volume 93.6 fL (81-100); Platelet Count 118 bil/L (150-400)
[2016-07-16 10:10] LABS: Phosphorus 2.3 mg/dL (2.5-4.9)
--- NOTE | 2016-07-16 14:33 | DRSVH ---
PROCEDURE: US VEINOUS LEG DUPLEX UNILATERAL, RIGHT INDICATIONS: CELLULITIS DVT TECHNIQUE: Real-time imaging, as well as color and pulse Doppler interrogation, were performed of the lower extr emity deep veins from the inguinal ligament to the popliteal fossa. COMPARISON: None. FINDINGS: The deep veins are normally compressible, and free of intraluminal thrombus. Color and pu lse Doppler demonstrate normal phasic intraluminal flow. There is normal augmentation response to di stal compression maneuver. IMPRESSION: No evidence of deep venous thrombosis. Dictated by: Shannan Hobbs M.D. on 07/16/2016 at 14:27 Approved by: Shannan Hobbs M.D. on 07/16/2016 at 14:27
[2016-07-16] MEDS: DOPamine 800 mg/250 mL D5W 800,000 MCG in IV Premix 1 EACH IV SCH (14:54)
--- NOTE | 2016-07-16 16:12 | PCM.PNMED ---
Subjective Date of Service Jul 16, 2016 Subjective Patient thinks the swelling is improving Although still complaining of significant pain Patient denied having DVT in the past though this is a third cellulitis episode he has Exam Vital Signs Vital Sign - Last Date Time Temp Pulse Resp B/P Pulse Ox O2 Delivery O2 Flow Rate FiO2 07/16/16 14:03 37.3 77 20 113/68 94 Room Air 07/15/16 05:41 6.00 Intake and Output 07/15/16 07/15/16 07/16/16 Cumulative From/Thru 15:00 23:00 07:00 07/14/16 02:34 - 07/16/16 06:27 Intake Total 1291 ml 1485 ml 63662 ml Output Total 900 ml 800 ml 8000 ml Balance 391 ml 685 ml 28522 ml Intake Oral 750 ml 300 ml 1650 ml IV Total 541 ml 1185 ml 73777 ml Output Urine Total 900 ml 800 ml 8000 ml # Bowel Movements 0 0 Exam NAD, comfortably laying down on the bed no JVD, MMM, no LAD RRR, nl s1, s2 no mrg CTAB, no w,c S,ND,NT,normoactive BS+ RLE-diffuse Erythematous, no external ulcers, discharge, pitting edema+ IVs and Medications Medications Reviewed: Medications were reviewed in detail Lab and Diagnostics Result Diagram: 07/16/1692107/16/16921 Additional Diagnostics PROCEDURE: US VEINOUS LEG DUPLEX UNILATERAL, RIGHT INDICATIONS: CELLULITIS DVT TECHNIQUE: Real-time imaging, as well as color and pulse Doppler interrogation, were performed of the lower extremity deep veins from the inguinal ligament to the popliteal fossa. COMPARISON: None. FINDINGS: The deep veins are normally compressible, and free of intraluminal thrombus. Color and pulse Doppler demonstrate normal phasic intraluminal flow. There is normal augmentation response to distal compression maneuver. IMPRESSION: No evidence of deep venous thrombosis. Dictated by: Shannan Hobbs M.D. on 07/16/2016 at 14:27 Approved by: Shannan Hobbs M.D. on 07/16/2016 at 14:27 Assessment & Plan Faizan Christine is a 61 year old male with Diabetes mellitus, rheumatoid arthritis on Prednisone, obstructive sleep apnea on CPAP, peripheral vascular disease, coronary artery disease with prior [place] and cardiac stenting who presents to [facility] Emergency department with Right Leg cellulitis with Septic shock s/p ICU stay, transfer to [facility] 07/15 acute, active #Acute Right lower extremity cellulitis. Present on admission, Prior cellulitis with Strep in 2014, treated with Linezolid. Patient is immunocompromised from treatment for Rheumatoid infection. Unclear why patient has recurrent cellulitis. BCX ngtd. no DVT on doppler 07/16. -Patient further improving with abx, white count coming down, remained afebrile -appreciate ID recs on abx regimen, continue ceftriaxone and clindamycin per ID for probable streptococcal cellulitis. Likely to switch amoxicillin or keflex on d/c, -Continue to elevate RLE -percocet, tylenol prn for pain chronic, stable, resolved 1. Septic shock. Present on admission. Secondary to RLE cellulitis, pt met SIRS criteria with leukocytosis, hypotension with source skin infection. Patient hypotensive on admission, non responsive to IV fluids resuscitations and was started on Pressors. Hypotension likely combination of dehydration, antihypertensive medications and possible Adrenal insufficiency. Several evidence of organ dysfunction with lactic acidosis, hypotension and mild encephalopathy, septic shock resolved with antibiotics, hemodynamically stable. #Lactic acidosis in the setting of septic shock. Present on admission, resolved. #Rheumatoid arthritis -s/p stress dose of steroid with hydrocortisone, switch to home dose 5mg qd today, continue Plaquenil. - hold Methotrexate #Coronary artery disease, s/p stents 2006. Appears to be stable. No anginal or equivalent complaints - Continue statin Aspirin and Plavix - held Metoprolol and Lisinopril, likely to resume once patient is more stable #Obstructive sleep apnea with Morbid Obesity -continue home CPAP dispo: Likely through 3 more days given critical initial presentation, still requires IV antibiotics diet:heart healthy dvt ppx:HSQ Full code . Resuscitation Status: CPR: Attempt Resuscitation Time spent 35min Faby Cole MD Jul 16, 2016 16:12
--- NOTE | 2016-07-16 16:28 | NUR ---
DM Pt's blood sugar this morning 115. When asked if pt uses insulin at home, pt states he has never been diagnosed with DM and does not know where staff got this information.
--- NOTE | 2016-07-16 18:10 | NUR ---
Activity/pain Pt has remained in bed this shift, has not attempted to get OOB. He c/o a persistent GAYTAN, feels it is caffeine related. Acetaminophen given with minimal results. IJ in R neck infusing without issue. Bed in lowest, locked position and call light in reach.
[2016-07-17] VITALS (9 sets, daily range): BP systolic 116–134; BP diastolic 64–72; PULSE 75–82; RESP 18–20; O2SAT 92–97
[2016-07-17] MEDS: Heparin 5,000 Unit/mL Inj SUBQ SCH ×3 (00:30→17:38)
[2016-07-17] MEDS: Clindamycin Inj 900 MG in IV Premix 1 EACH IV SCH ×3 (01:19→17:39)
[2016-07-17] MEDS: 0.9% Sodium Chloride 1,000 ML IV SCH ×2 (01:19→11:22)
--- NOTE | 2016-07-17 04:26 | NUR ---
activity/ pain Pt complained of GAYTAN, given Boss with good results. Pt thought is may be caffeine related. Pt remained in bed for the shift. Will continue to monitor.
[2016-07-17] MEDS: HYDROcodone-APAP 5-325 mg Tablet PO PRN ×3 (04:43→22:47)
[2016-07-17 07:44] LABS: Magnesium 2.1 mg/dL (1.6-2.6)
[2016-07-17] MEDS: predniSONE 5 mg Tablet PO SCH (08:03)
[2016-07-17] MEDS: cefTRIAXone Inj 2,000 MG in Dextrose 5% Minibag Plus 50 ML IV SCH (08:04)
[2016-07-17] MEDS: Ondansetron 2 mg/mL 2 mL Inj IVPUSH PRN ×2 (08:18→21:34)
[2016-07-17 09:26] LABS: BASOPHILS % (AUTO) 0.2 % (0-3); EOSINOPHILS % (AUTO) 2.2 % (0-5); MONOCYTES % (AUTO) 11.3 % (4-12); Mean Corpuscular Hemoglobin 30.4 pg (27.0-35.0); Mean Corpuscular Volume 92.4 fL (81-100); NEUTROPHILS % (AUTO) 70.9 % (40-74); Platelet Count 135 bil/L (150-400)
--- NOTE | 2016-07-17 10:06 | NUR ---
Social Work: Readiness for d/c Data: Pt is on day 3 of hospitalization for sepsis cellulitis hypotension. EMR reviewed, pt discussed in rounds. states that pt will likely d/c either tomorrow or the next day. anticipated pt will switch to PO ABX at d/c. No d/c planning needs anticipated at this time. SUPERVISOR EDUCATION will continue to follow. Assessment: Pt who is independent at baseline. Plan: Pt will d/c home via POV when medically stable, likely in 1-2 days. Pt likely transition to PO ABX at d/c. No d/c planning needs anticipated at this time. SUPERVISOR EDUCATION will continue to follow. HITESH Cisneros
--- NOTE | 2016-07-17 11:21 | PCM.PNMED ---
Subjective Date of Service Jul 17, 2016 Subjective Patient continued to complain of pain on the right leg Remained afebrile, hemodynamically stable Exam Vital Signs Vital Sign - Last Date Time Temp Pulse Resp B/P Pulse Ox O2 Delivery O2 Flow Rate FiO2 07/17/16 09:58 80 07/17/16 09:26 37.5 18 126/70 95 Room Air 07/15/16 05:41 6.00 Intake and Output 07/16/16 07/16/16 07/17/16 Cumulative From/Thru 15:00 23:00 07:00 07/14/16 02:34 - 07/17/16 06:10 Intake Total 2082 ml 700 ml 31337 ml Output Total 950 ml 1550 ml 83377 ml Balance 1132 ml -850 ml 72794 ml Intake Oral 637 ml 700 ml 2987 ml IV Total 1445 ml 29095 ml Output Urine Total 950 ml 1550 ml 02232 ml # Bowel Movements 0 Exam NAD, comfortably laying down on the bed no JVD, MMM, no LAD RRR, nl s1, s2 no mrg CTAB, no w,c S,ND,NT,normoactive BS+ RLE-diffuse Erythematous, no external ulcers, discharge, pitting edema+ Lab and Diagnostics Result Diagram: 07/17/16 0905 07/17/16 0646 Additional Diagnostics PROCEDURE: US VEINOUS LEG DUPLEX UNILATERAL, RIGHT INDICATIONS: CELLULITIS DVT TECHNIQUE: Real-time imaging, as well as color and pulse Doppler interrogation, were performed of the lower extremity deep veins from the inguinal ligament to the popliteal fossa. COMPARISON: None. FINDINGS: The deep veins are normally compressible, and free of intraluminal thrombus. Color and pulse Doppler demonstrate normal phasic intraluminal flow. There is normal augmentation response to distal compression maneuver. IMPRESSION: No evidence of deep venous thrombosis. Dictated by: Shannan Hobbs M.D. on 07/16/2016 at 14:27 Approved by: Shannan Hobbs M.D. on 07/16/2016 at 14:27 Assessment & Plan Faizan Christine is a 61 year old male with Diabetes mellitus, rheumatoid arthritis on Prednisone, obstructive sleep apnea on CPAP, peripheral vascular disease, coronary artery disease with prior [place] and cardiac stenting who presents to [facility] Emergency department with Right Leg cellulitis with Septic shock s/p ICU stay, transfer to [place] 07/15 acute, active #Acute Right lower extremity cellulitis. Present on admission, Prior cellulitis with Strep in 2014, treated with Linezolid. Patient is immunocompromised from treatment for Rheumatoid infection. Unclear why patient has recurrent cellulitis. BCX ngtd. no DVT on doppler 07/16. -Patient further improving with abx, white count coming down, remained afebrile -appreciate ID recs on abx regimen, continue ceftriaxone and clindamycin per ID for probable streptococcal cellulitis. Likely to switch amoxicillin or keflex on d/c, -Continue to elevate RLE -percocet, tylenol prn for pain chronic, stable, resolved 1. Septic shock. Present on admission. Secondary to RLE cellulitis, pt met SIRS criteria with leukocytosis, hypotension with source skin infection. Patient hypotensive on admission, non responsive to IV fluids resuscitations and was started on Pressors. Hypotension likely combination of dehydration, antihypertensive medications and possible Adrenal insufficiency. Several evidence of organ dysfunction with lactic acidosis, hypotension and mild encephalopathy, septic shock resolved with antibiotics, hemodynamically stable. #Lactic acidosis in the setting of septic shock. Present on admission, resolved. #Rheumatoid arthritis -s/p stress dose of steroid with hydrocortisone, switch to home dose 5mg qd today, continue Plaquenil. - hold Methotrexate #Coronary artery disease, s/p stents 2006. Appears to be stable. No anginal or equivalent complaints - Continue statin Aspirin and Plavix - held Metoprolol and Lisinopril, likely to resume once patient is more stable #Obstructive sleep apnea with Morbid Obesity -continue home CPAP dispo: Likely through 2 more days given critical initial presentation, still requires IV antibiotics diet:heart healthy dvt ppx:HSQ Full code . Resuscitation Status: CPR: Attempt Resuscitation Time spent 35min Faby Cole MD Jul 17, 2016 11:21
--- NOTE | 2016-07-17 16:55 | PROG NOTE ---
[address] [address] PROGRESS NOTE PATIENT: CLEMENT SEGAL : 1955 MR#: [id number] ADMIT: 07/14/2016 JOB ID: [id number] DATE: 07/17/2016 REASON FOR FOLLOWUP: Severe right lower extremity cellulitis with associated septic shock. INTERVAL HISTORY: Over the past 48 hours, the patient has improved enough to get off vasopressor agents and be moved to the marks from the ICU. Despite that improvement and the lack of continued fever and chills, he continues to have a great deal of pain and inflammation between the knee and the ankle on the right side. Getting out of bed even for a moment is excruciating because of the increased pain in the area. He does note that instead of having pain so severe his leg cannot be touch even by light touch or a sheet that he now can tolerate a little bit of pressure on that leg, but is still far, far from a functional level for him. No pulmonary or GI symptoms. PHYSICAL EXAMINATION: Reveals an afebrile gentleman now, temperature 37.5, and he has been afebrile for multiple days. Pulse 80, respiratory rate 16, blood pressure 126/70, and he is saturating 95% on room air. Mental status: Sharp. Oral cavity negative. Lungs clear. Abdomen obese but benign. Right lower extremity still with impressive confluent cellulitis between the knee and the ankle on the right. There is no blistering and there is starting to be a little bit of wrinkling which suggests perhaps a slight improvement, but overall the area is warm and tender though not quite as tender as it was two days ago when I last saw him. LABORATORIES: Include a white count which has fallen from 24,000 to 11, so it has fallen by half. Platelets still a bit low at 135. Creatinine 0.68. LFTs are normal. Procalcitonin 4.27 yesterday, down from 8.6 on admission. Urinalysis is negative. Streptozyme is 175 which is not elevated. Anti-DNase B is pending. Micro studies include a MRSA screen which is negative. Blood cultures negative. Flu screen negative. IMAGING: Includes a venous study of that leg which shows no DVT. IMPRESSION: This patient has a very significant cellulitis of the right lower extremity which certainly appears to be another streptococcal process which left no proof of that as last time we required an anti-DNase B result to firmly nail down the diagnosis. The appearance of this, however, is completely consistent with another beta hemolytic severe streptococcal infection. The patient is currently being treated with clindamycin and ceftriaxone which classic regimen for management of beta hemolytic infection of this severity. RECOMMENDATIONS: 1. Will continue with clindamycin and ceftriaxone. 2. Eventually can be discharged on oral antibiotics, but he is nowhere near that point. 3. We discussed again the appropriate management of this recurrent cellulitis which may involve prophylactic antibiotics and/or an attempt at massive weight loss and the ongoing efforts to keep his leg elevated.
[2016-07-17] MEDS ORDERED: Sodium Chloride LOK Flush 10 mL Syringe IVFLUSH PRN ×2 (20:10)
[2016-07-18] VITALS (8 sets, daily range): BP systolic 111–129; BP diastolic 60–72; PULSE 65–88; RESP 20; O2SAT 94–95
[2016-07-18] MEDS: Clindamycin Inj 900 MG in IV Premix 1 EACH IV SCH ×3 (01:29→16:58)
[2016-07-18] MEDS: Heparin 5,000 Unit/mL Inj SUBQ SCH ×3 (01:29→19:40)
[2016-07-18] MEDS: HYDROcodone-APAP 5-325 mg Tablet PO PRN ×3 (06:07→18:23)
[2016-07-18] MEDS: predniSONE 5 mg Tablet PO SCH (07:44)
[2016-07-18] MEDS: cefTRIAXone Inj 2,000 MG in Dextrose 5% Minibag Plus 50 ML IV SCH (07:44)
[2016-07-18 08:11] LABS: BASOPHILS % (AUTO) 0.4 % (0-3); EOSINOPHILS % (AUTO) 3.4 % (0-5); MONOCYTES % (AUTO) 16.3 % (4-12); Mean Corpuscular Hemoglobin 30.8 pg (27.0-35.0); Mean Corpuscular Volume 91.8 fL (81-100); NEUTROPHILS % (AUTO) 63.3 % (40-74); Platelet Count 143 bil/L (150-400)
[2016-07-18 08:49] LABS: Magnesium 2.2 mg/dL (1.6-2.6); Phosphorus 2.9 mg/dL (2.5-4.9)
--- NOTE | 2016-07-18 14:32 | PCM.PNMED ---
Subjective Date of Service Jul 18, 2016 Subjective pt felt better, less swelling. had mild cough when he had fever 38.1 but currently no cough, sob, sore throat runny nose. Exam Vital Signs Vital Sign - Last Date Time Temp Pulse Resp B/P Pulse Ox O2 Delivery O2 Flow Rate FiO2 07/18/16 11:14 88 07/18/16 09:30 37.0 20 123/69 95 Room Air 07/15/16 05:41 6.00 Intake and Output 07/17/16 07/17/16 07/18/16 Cumulative From/Thru 15:00 23:00 07:00 07/14/16 02:34 - 07/17/16 22:49 Intake Total 1651 ml 1423 ml 88248 ml Output Total 350 ml 1825 ml 05286 ml Balance 1301 ml -402 ml 73780 ml Intake Oral 400 ml 3387 ml IV Total 1651 ml 1023 ml 67240 ml Output Urine Total 350 ml 1825 ml 04012 ml # Bowel Movements 0 Exam NAD, comfortably laying down on the bed no JVD, MMM, no LAD RRR, nl s1, s2 no mrg CTAB, no w,c S,ND,NT,normoactive BS+ RLE-diffuse Erythematous, no external ulcers, discharge, less edematous than prior day IVs and Medications Medications Reviewed: Medications were reviewed in detail Lab and Diagnostics Result Diagram: 07/18/16 0800 07/18/16 0800 Additional Diagnostics PROCEDURE: US VEINOUS LEG DUPLEX UNILATERAL, RIGHT INDICATIONS: CELLULITIS DVT TECHNIQUE: Real-time imaging, as well as color and pulse Doppler interrogation, were performed of the lower extremity deep veins from the inguinal ligament to the popliteal fossa. COMPARISON: None. FINDINGS: The deep veins are normally compressible, and free of intraluminal thrombus. Color and pulse Doppler demonstrate normal phasic intraluminal flow. There is normal augmentation response to distal compression maneuver. IMPRESSION: No evidence of deep venous thrombosis. Dictated by: Shannan Hobbs M.D. on 07/16/2016 at 14:27 Approved by: Shannan Hobbs M.D. on 07/16/2016 at 14:27 Assessment & Plan Faizan Christine is a 61 year old male with Diabetes mellitus, rheumatoid arthritis on Prednisone, obstructive sleep apnea on CPAP, peripheral vascular disease, coronary artery disease with prior [place] and cardiac stenting who presents to [facility] Emergency department with Right Leg cellulitis with Septic shock s/p ICU stay, transfer [place] [facility] [place] acute, active #Acute Right lower extremity cellulitis. Present on admission, Prior cellulitis with Strep in 2014, treated with Linezolid. Patient is immunocompromised from treatment for Rheumatoid infection. Unclear why patient has recurrent cellulitis. BCX ngtd. no DVT on doppler 07/16. -Patient further improving with abx, white count coming down, but had one episode of fever overnight, no obvious signs of other infectious source -appreciate ID recs on abx regimen, continue ceftriaxone and clindamycin per ID for probable streptococcal cellulitis. Likely to switch amoxicillin or keflex on d/c, -Continue to elevate RLE -percocet, tylenol prn for pain chronic, stable, resolved 1. Septic shock. Present on admission. Secondary to RLE cellulitis, pt met SIRS criteria with leukocytosis, hypotension with source skin infection. Patient hypotensive on admission, non responsive to IV fluids resuscitations and was started on Pressors. Hypotension likely combination of dehydration, antihypertensive medications and possible Adrenal insufficiency. Several evidence of organ dysfunction with lactic acidosis, hypotension and mild encephalopathy, septic shock resolved with antibiotics, hemodynamically stable. #Lactic acidosis in the setting of septic shock. Present on admission, resolved. #Rheumatoid arthritis -s/p stress dose of steroid with hydrocortisone, switch to home dose 5mg qd today, continue Plaquenil. - hold Methotrexate #Coronary artery disease, s/p stents 2006. Appears to be stable. No anginal or equivalent complaints - Continue statin Aspirin and Plavix - held Metoprolol and Lisinopril, likely to resume once patient is more stable #Obstructive sleep apnea with Morbid Obesity -continue home CPAP dispo: Likely through 2 more days given critical initial presentation, still requires IV antibiotics, appreciate ID input regarding dispo timing diet:heart healthy dvt ppx:HSQ Full code . Resuscitation Status: CPR: Attempt Resuscitation Time spent 35min Faby Cole MD Jul 18, 2016 14:28
[2016-07-18] MEDS: Ondansetron 2 mg/mL 2 mL Inj IVPUSH PRN (16:58)
--- NOTE | 2016-07-18 17:23 | PROG NOTE ---
[address] [address] PROGRESS NOTE PATIENT: CLEMENT SEGAL : 1955 MR#: [id number] ADMIT: 07/14/2016 JOB ID: [id number] DATE: 07/18/2016 REASON FOR FOLLOWUP: Severe right lower extremity group A streptococcal cellulitis which was associated with septic shock. INTERVAL HISTORY: Over the weekend, the patient has steadily improved. He was moved over the weekend to the third floor as his septic shock had ended and he no longer required vasopressors. When I saw the patient yesterday though, he was still having a great deal of pain in the right lower extremity below the knee which was much worse with any movement of the legs. His fevers and chills have ended over the past couple of days and his leg pain has diminished somewhat as compared to yesterday though it is still quite inflamed and limits his activities greatly. He has no pulmonary or GI symptoms today. Temperature 37 and he has been afebrile for about 24 hours. It is interesting he did spike to 38.1 last night and that was his highest temperature really the whole hospital stay. Pulse 88, respiratory rate 20, blood pressure 123/69. He is saturating well on room air. Examination of the oral cavity is unremarkable. Lungs clear. Abdomen soft and nontender. The patient does not have any tender inguinal or femoral nodes on the right side. The right lower extremity cellulitis between the knee and ankle continues to progress and that it is a bit less warm, a bit less tender and there is now some wrinkling. That said, the patient's leg is still impressively swollen with diffuse warmth and tenderness though a bit better over the past few days. LABORATORIES: Include white count down to 10,000 which signifies improvement. His creatinine is down to 0.59. His liver function tests normal except for a slightly increased bilirubin. His anti-DNase B is again strongly positive. Cultures have been negative including a MRSA screen and blood cultures. IMPRESSION: This patient has a very severe group A streptococcal cellulitis which left him in septic shock on arrival. This is related to his morbid obesity, venous insufficiency and lymphedema and is a recurrent problem for this gentleman. RECOMMENDATIONS: 1. Will continue with full dose clindamycin and ceftriaxone until there is more improvement. 2. The isolation can be discontinued as by this point we certainly have reduced the burden of group A strep to the point that he is no longer infectious to others with what may be a highly pathogenic strain capable of producing shock. 3. ID will continue to follow with you. As he improves, we may consider using dalbavancin or some similar agent to get him out of the hospital here towards the end of the week.
--- NOTE | 2016-07-18 20:08 | NUR ---
Pain, cellulitis Pt states leg feels better than yesterday but still hurts at about a 5/10. Vicodin 2 tabs PO given twice this shift for leg pain. Zofran 4mg IV given for nausea. Pt ate breakfast, skipped other meals as he wasn't feeling well. Zofran effective. Pt up in chair with leg elevated on bed, transfers independently. Will continue with current plan of care.
[2016-07-19] VITALS (7 sets, daily range): BP systolic 121–131; BP diastolic 63–79; PULSE 73–90; RESP 18–20; O2SAT 92–95
[2016-07-19] MEDS: Heparin 5,000 Unit/mL Inj SUBQ SCH ×3 (00:13→17:34)
[2016-07-19] MEDS: Clindamycin Inj 900 MG in IV Premix 1 EACH IV SCH ×3 (00:16→17:34)
[2016-07-19] MEDS: HYDROcodone-APAP 5-325 mg Tablet PO PRN ×4 (00:59→21:20)
--- NOTE | 2016-07-19 04:26 | NUR ---
Shift report Pleasant pt, able to make needs known, uses call light appropriately. Pt voids into urinal. Denies discomfort. R foot elevated d/t cellulitis. Pt states swelling is decreasing. Medicated for pain with PRN meds. Cold cloth applied to forehead for GAYTAN. Pt tolerating IV abx well. Bed in low position, call light in reach. Will continue to monitor.
[2016-07-19] MEDS: predniSONE 5 mg Tablet PO SCH (08:08)
[2016-07-19] MEDS: Ondansetron 2 mg/mL 2 mL Inj IVPUSH PRN (08:08)
[2016-07-19 09:01] LABS: BASOPHILS % (AUTO) 0.5 % (0-3); EOSINOPHILS % (AUTO) 4.9 % (0-5); MONOCYTES % (AUTO) 15.7 % (4-12); Mean Corpuscular Hemoglobin 30.9 pg (27.0-35.0); Mean Corpuscular Volume 91.1 fL (81-100); NEUTROPHILS % (AUTO) 60.2 % (40-74); Platelet Count 161 bil/L (150-400)
[2016-07-19 09:20] LABS: Magnesium 2.1 mg/dL (1.6-2.6); Phosphorus 2.9 mg/dL (2.5-4.9)
[2016-07-19] MEDS: cefTRIAXone Inj 2,000 MG in Dextrose 5% Minibag Plus 50 ML IV SCH (09:32)
--- NOTE | 2016-07-19 12:10 | PCM.PNMED ---
Subjective Date of Service Jul 19, 2016 Subjective Right leg further improved clinically, less edema and erythema and pain Exam Vital Signs Vital Sign - Last Date Time Temp Pulse Resp B/P Pulse Ox O2 Delivery O2 Flow Rate FiO2 07/19/16 09:37 37.0 78 18 121/70 92 Room Air 07/15/16 05:41 6.00 Intake and Output 07/18/16 07/18/16 07/19/16 Cumulative From/Thru 15:00 23:00 07:00 07/14/16 02:34 - 07/19/16 00:59 Intake Total 465 ml 980 ml 55 ml 00506 ml Output Total 1475 ml 1600 ml 19953 ml Balance -1010 ml -620 ml 55 ml 55705 ml Intake Oral 300 ml 980 ml 4667 ml IV Total 165 ml 55 ml 65040 ml Output Urine Total 1475 ml 1600 ml 02845 ml # Bowel Movements 0 Exam NAD, comfortably laying down on the bed no JVD, MMM, no LAD RRR, nl s1, s2 no mrg CTAB, no w,c S,ND,NT,normoactive BS+ RLE-diffuse Erythematous, no external ulcers, discharge, less edematous than prior day IVs and Medications Medications Reviewed: Medications were reviewed in detail Lab and Diagnostics Result Diagram: 07/19/16 0850 07/19/16 0850 Additional Diagnostics PROCEDURE: US VEINOUS LEG DUPLEX UNILATERAL, RIGHT INDICATIONS: CELLULITIS DVT TECHNIQUE: Real-time imaging, as well as color and pulse Doppler interrogation, were performed of the lower extremity deep veins from the inguinal ligament to the popliteal fossa. COMPARISON: None. FINDINGS: The deep veins are normally compressible, and free of intraluminal thrombus. Color and pulse Doppler demonstrate normal phasic intraluminal flow. There is normal augmentation response to distal compression maneuver. IMPRESSION: No evidence of deep venous thrombosis. Dictated by: Shannan Hobbs M.D. on 07/16/2016 at 14:27 Approved by: Shannan Hobbs M.D. on 07/16/2016 at 14:27 Assessment & Plan Faizan Christine is a 61 year old male with Diabetes mellitus, rheumatoid arthritis on Prednisone, obstructive sleep apnea on CPAP, peripheral vascular disease, coronary artery disease with prior [place] and cardiac stenting who presents to [facility] Emergency department with Right Leg cellulitis with Septic shock s/p ICU stay, transfer to [facility] [place] 07/15 acute, active #Acute Right lower extremity cellulitis. Present on admission, Prior cellulitis with Strep in 2014, treated with Linezolid. Patient is immunocompromised from treatment for Rheumatoid infection. Unclear why patient has recurrent cellulitis. BCX ngtd. no DVT on doppler 07/16. -Patient further improving with abx, white count coming down, but had one episode of fever overnight, no obvious signs of other infectious source -appreciate ID recs on abx regimen, continue ceftriaxone and clindamycin per ID for probable streptococcal cellulitis. Likely to dalbavancin upon d/c later this week. -Continue to elevate RLE -percocet, tylenol prn for pain chronic, stable, resolved 1. Septic shock. Present on admission. Secondary to RLE cellulitis, pt met SIRS criteria with leukocytosis, hypotension with source skin infection. Patient hypotensive on admission, non responsive to IV fluids resuscitations and was started on Pressors. Hypotension likely combination of dehydration, antihypertensive medications and possible Adrenal insufficiency. Several evidence of organ dysfunction with lactic acidosis, hypotension and mild encephalopathy, septic shock resolved with antibiotics, hemodynamically stable. #Lactic acidosis in the setting of septic shock. Present on admission, resolved. #Rheumatoid arthritis -s/p stress dose of steroid with hydrocortisone, switch to home dose 5mg qd today, continue Plaquenil. - hold Methotrexate #Coronary artery disease, s/p stents 2006. Appears to be stable. No anginal or equivalent complaints - Continue statin Aspirin and Plavix - held Metoprolol and Lisinopril, likely to resume once patient is more stable #Obstructive sleep apnea with Morbid Obesity -continue home CPAP dispo: until late this week per ID. diet:heart healthy dvt ppx:HSQ Full code . VTE Mechanical Devices: Venous Foot Pump Resuscitation Status: CPR: Attempt Resuscitation Time spent 35 minutes Faby Cole MD Jul 19, 2016 12:09
--- NOTE | 2016-07-19 14:50 | PROG NOTE ---
[address] [address] PROGRESS NOTE PATIENT: CLEMENT SEGAL : 1955 MR#: [id number] ADMIT: 07/14/2016 JOB ID: [id number] DATE: 07/19/2016 REASON FOR FOLLOWUP: Severe right lower extremity cellulitis with septic shock. INTERVAL HISTORY: The patient continues to slowly improve. He still has some warmth and a bit of tenderness in his right lower extremity below the knee but notes it is diminishing. No associated fevers, chills, or sweats. No pulmonary or GI symptoms. PHYSICAL EXAMINATION: Reveals an afebrile gentleman who is lying comfortably in his bed. Temp 37.3, pulse 76, respiratory rate 18, blood pressure 131/79, saturating 93% on room air. Examination of the oral cavity is unremarkable. The lungs are clear. Cardiac tones: Regular rate and rhythm. The abdomen is obese without tenderness. The right lower extremity below the knee continues to have erythema and warmth, but it is gradually improving. The small area that had extended above the left leg is now no longer warm nor tender. The cellulitic area is wrinkling up nicely which suggests continued improvement. LABORATORIES: Include a white count of 9400, normal diff. Creatinine 0.53. Albumin 3.1. Procalcitonin 4.27. Anti-DNase B strongly positive at 263 confirming our diagnosis of a group A strep and cellulitic change. The cultures remain negative. Venous duplex study likewise negative. IMPRESSION: This patient is doing very well with group A streptococcal cellulitis with associated septic shock. Contributing factors have included venous insufficiency, morbid obesity, and lymphedema. RECOMMENDATION: 1. Will continue with our full dose clindamycin and ceftriaxone for the time being. 2. Will continue to follow with you. Sometime in the next 2-4 days, I would anticipate the patient to be ready for discharge on oral or long-acting IV antibiotics. 3. Antibiotic prophylaxis may be a consideration in this patient should he have additional episodes of this very significant problem.
--- NOTE | 2016-07-19 16:25 | NUR ---
NUTRITION FOLLOW-UP: Assess: 61 yo M w/ sepsis secondary to cellulitis of rt lower extremity which is improving. Pt continues to have variable po intake of 0-100%. PMHx: RA, CAD s/p drug eluding stent, JAMILAH on CPAP, HLD, GERD, Diabetes LABS: Reviewed. Cr .53, Glu 109, Alb 3.1 MEDICATIONS: Reviewed. DIET: Heart Healthy, PO varies from 0-100% of meals. GI symptoms/stool: BM x 1 (07/14) Skin integrity: Cellulitis of rt lower extremity-Improving. ANTHROPOMETRICS: Current Wt: 149.6 kg Admit Wt: 153.3 kg IBW: 72.7 kg Adj BW: 92.9 kg ESTIMATED NEEDS: Calories: 5300-4882 kcal/d (25-30 kcal/kg/d Adj BW) Protein: 110-140 g/d (1.2-1.5 g/kg/d Adj BW) NUTRITION DIAGNOSIS: 1) Inadequate oral intake related to respiratory failure and lethargy as evidenced by need for O2 supplementations and PO intake of 0-100% x 5 days-PERSISTS. INTERVENTION: 1) Will add Glucerna to all trays. 2) Recommend scheduled bowel regimen as no BM reported since 07/14. MONITOR/EVALUATE: PO intake, Labs, BM, Weight, Nutrition status. Will follow per moderate nutrition risk guidelines.
[2016-07-20] VITALS (7 sets, daily range): BP systolic 120–149; BP diastolic 67–81; PULSE 76–114; RESP 18–20; O2SAT 94–95
[2016-07-20] MEDS: Heparin 5,000 Unit/mL Inj SUBQ SCH ×3 (00:42→16:48)
[2016-07-20] MEDS: Clindamycin Inj 900 MG in IV Premix 1 EACH IV SCH ×3 (00:43→16:48)
[2016-07-20] MEDS: HYDROcodone-APAP 5-325 mg Tablet PO PRN ×4 (04:14→22:49)
--- NOTE | 2016-07-20 06:29 | NUR ---
Pain/Cellulitis Pt c/o pain 6/10 at right cellulitis leg, [place] 2 tab givenx2 per pt requests, pain improved, and pt fallen asleep most of night.. RLE: Pain,pitting edema, dark redness, skin wrinkled, edema improving, LLE elevated on pillow. ABX given as scheduled.
[2016-07-20] MEDS: predniSONE 5 mg Tablet PO SCH (08:17)
[2016-07-20] MEDS: cefTRIAXone Inj 2,000 MG in Dextrose 5% Minibag Plus 50 ML IV SCH (08:57)
[2016-07-20] MEDS ORDERED: Senna-Docusate 8.6-50 mg Tablet PO SCH (10:05)
[2016-07-20] MEDS ORDERED: Senna-Docusate 8.6-50 mg Tablet PO PRN (10:20)
--- NOTE | 2016-07-20 10:40 | PCM.PNMED ---
Subjective Date of Service Jul 20, 2016 Subjective Slept well overnight. Reports that his right leg is much more wrinkly today and the pain to touch has decreased a lot. He has been tolerating PO intake more. He denies any new fevers, SOB, or CP. He reports he hasn't had a BM in the last few days and feels constipated. Exam Vital Signs Vital Sign - Last Date Time Temp Pulse Resp B/P Pulse Ox O2 Delivery O2 Flow Rate FiO2 07/20/16 06:06 37.2 81 18 120/67 94 Room Air 07/15/16 05:41 6.00 Intake and Output 07/19/16 07/19/16 07/20/16 Cumulative From/Thru 15:00 23:00 07:00 07/14/16 02:34 - 07/20/16 06:28 Intake Total 400 ml 550 ml 1111 ml 94345 ml Output Total 1045 ml 1550 ml 1125 ml 78275 ml Balance -645 ml -1000 ml -14 ml 35715 ml Intake Oral 400 ml 237 ml 1111 ml 6415 ml IV Total 313 ml 09552 ml Output Urine Total 1045 ml 1550 ml 1125 ml 33321 ml # Bowel Movements 0 0 General: Alert, Oriented X3, Cooperative, No Acute Distress, Other (Obese) Eyes: PERRLA, Scleral Anicteric Mouth: Mucous Membr Moist/[place] Chest & Lungs: Clear to auscultation & percussion, Other (normal effort) Cardiovascular: Regular Rate/Rhythm Pulses: Dorsalis Pedis (present and equal) Abdomen: Non-tender, Distended (mild), No masses, Normoactive bowel tones, Soft , Other (obese) Extremities: Warm, Edema (Mild pedal edema R>L), Other (RLE diffusely erythematous from ankle to knee, mild pain to palpation, skin is wrinkled, improving) Neurological: Grossly Neurologically Intact, Normal Speech, Sensation Intact IVs and Medications Medications Reviewed: Medications were reviewed in detail Lab and Diagnostics Result Diagram: 07/19/16 0850 07/19/16 0850 Additional Diagnostics PROCEDURE: US VEINOUS LEG DUPLEX UNILATERAL, RIGHT INDICATIONS: CELLULITIS DVT TECHNIQUE: Real-time imaging, as well as color and pulse Doppler interrogation, were performed of the lower extremity deep veins from the inguinal ligament to the popliteal fossa. COMPARISON: None. FINDINGS: The deep veins are normally compressible, and free of intraluminal thrombus. Color and pulse Doppler demonstrate normal phasic intraluminal flow. There is normal augmentation response to distal compression maneuver. IMPRESSION: No evidence of deep venous thrombosis. Dictated by: Shannan Hobbs M.D. on 07/16/2016 at 14:27 Approved by: Shannan Hobbs M.D. on 07/16/2016 at 14:27 Assessment & Plan Faizan Christine is a 61 year old male with Diabetes mellitus, rheumatoid arthritis on Prednisone, obstructive sleep apnea on CPAP, peripheral vascular disease, coronary artery disease with prior [place] and cardiac stenting who presents to [facility] Emergency department with Right Leg cellulitis with Septic shock s/p ICU stay, [place] [facility] [place] #Acute Right lower extremity cellulitis. POA, Improving History of prior cellulitis with Strep in 2014, treated with Linezolid. Patient is immunocompromised from MTX treatment for RA. BCX neg, no DVT on doppler . -Status is improving, skin more wrinkled and pain moderately decreased, WBC wnl now. -Appreciate ID recs on abx regimen, Plan is to continue ceftriaxone and clindamycin per ID for probable streptococcal cellulitis and change to PO antibiotics tomorrow. -Continue to elevate RLE -Percocet, tylenol PO prn for pain -Will plan to resume patient's home medications tonight also. #Constipation Will initiate Senna-doc prn chronic, stable, resolved conditions 1. Septic shock. Present on admission. Secondary to RLE cellulitis, pt met SIRS criteria with leukocytosis, hypotension with source skin infection. Patient hypotensive on admission, non responsive to IV fluids resuscitations and was started on Pressors. Hypotension likely combination of dehydration, antihypertensive medications and possible Adrenal insufficiency. Several evidence of organ dysfunction with lactic acidosis, hypotension and mild encephalopathy, septic shock resolved with antibiotics, hemodynamically stable. #Lactic acidosis in the setting of septic shock. Present on admission, resolved. #Rheumatoid arthritis -s/p stress dose of steroid with hydrocortisone - hold Methotrexate - Currently on Prednisone 5mg PO daily, will resume Plaquenil daily also #Coronary artery disease, s/p stents 2006. Appears to be stable. No anginal or equivalent complaints - Continue statin Aspirin and Plavix - Resuming home meds today #Obstructive sleep apnea with Morbid Obesity -continue home CPAP dispo: Likely discharged towards end of the week once patient transitions to PO abx. diet:heart healthy dvt ppx:HSQ Full code . Pain Evaluation: Adequate Pain Control VTE Prophylaxis: Sub-Q Heparin (Unfractionated) VTE Mechanical Devices: Venous Foot Pump Resuscitation Status: CPR: Attempt Resuscitation Attending Statement Patient was seen and evaluated with Dr. Hernandez on 07/20/2016. I agree with the findings, assessment and plan of care as noted above. Jet Hernandez DO Jul 20, 2016 07:56 Marcelino Wise MD Jul 21, 2016 13:05
--- NOTE | 2016-07-20 14:18 | NUR ---
Social Work-readiness for discharge: Data:EMR Reviewed. Pt is on day 6 of hospitalization for sepsis per H&P. Pt is not medically stable, anticipate another 2 days. Pt to remain on IV abx and then will switch to PO at discharge. Per RN notes, pt has been up independent in his room. Pt's family to provide transport home. No discharge needs identified. All updated and agreeable to plan. Assessment:Pt who is independent at baseline. Plan:Pt to discharge home when medically stable via POV. No discharge needs identified. All updated and agreeable to plan. HITESH Cantrell
[2016-07-20] MEDS ORDERED: Non-Formulary Medication (Ranitidine 300 MG) PO SCH (20:30)
[2016-07-20] MEDS: Hydroxychloroqine 200 mg Tablet PO SCH (20:49)
[2016-07-21] VITALS (7 sets, daily range): BP systolic 108–147; BP diastolic 62–81; PULSE 66–107; RESP 18–20; O2SAT 95–98
[2016-07-21] MEDS: Heparin 5,000 Unit/mL Inj SUBQ SCH ×4 (00:05→23:58)
[2016-07-21] MEDS: Clindamycin Inj 900 MG in IV Premix 1 EACH IV SCH ×4 (00:06→23:58)
[2016-07-21 05:01] LABS: BASOPHILS % (AUTO) 0.5 % (0-3); EOSINOPHILS % (AUTO) 4.3 % (0-5); MONOCYTES % (AUTO) 11.7 % (4-12); Mean Corpuscular Hemoglobin 30.8 pg (27.0-35.0); Mean Corpuscular Volume 89.7 fL (81-100); Platelet Count 211 bil/L (150-400)
[2016-07-21] MEDS: HYDROcodone-APAP 5-325 mg Tablet PO PRN ×3 (05:17→17:49)
--- NOTE | 2016-07-21 05:33 | NUR ---
Pain/Cellulitis Pt c/o pain 6/10 at right cellulitis leg, [place] 2 tab q6hr givenx2 per pt requests, pain down to 2-3/10, tolerable and pt sleep most of night. Cellulitis at RLE: Pain, 1+ pitting edema, dark red and wrinkled skin, improving significantly,no open area or bullae noted, RLE elevated on 2-3 pillows. Clindamycin given as scheduled at night. VSS, afebrile.
[2016-07-21] MEDS: predniSONE 5 mg Tablet PO SCH (07:33)
[2016-07-21] MEDS: Hydroxychloroqine 200 mg Tablet PO SCH ×2 (07:33→20:32)
[2016-07-21] MEDS: cefTRIAXone Inj 2,000 MG in Dextrose 5% Minibag Plus 50 ML IV SCH (08:27)
--- NOTE | 2016-07-21 13:42 | PROG NOTE ---
[address] [address] PROGRESS NOTE PATIENT: CLEMENT SEGAL : 1955 MR#: [id number] ADMIT: 07/14/2016 JOB ID: [id number] DATE: 07/21/2016 INFECTIOUS DISEASE FOLLOWUP NOTE: REASON FOR FOLLOWUP: Severe group A streptococcal cellulitis right lower extremity. INTERVAL HISTORY: Today the patient is quite concerned because he was told his white count is going up and another physician told and there appears to be more erythema along his right lateral thigh. He is concerned that he may actually be getting worse. The patient today however denies fevers, chills, or sweats, which were all problems before he came in. He reports there is gradually less pain in his right lower extremity, and when he stands up and walks now it is minimally painful, as opposed to excruciating when he came in. He has no pulmonary or GI symptoms and specifically no nausea or vomiting or diarrhea. PHYSICAL EXAMINATION: Reveals an afebrile gentleman lying supine in his hospital bed. He has been afebrile now since the , four days ago, when he had a minute small temperature spike. Other than that he has been afebrile for basically a week. Pulse 107, respiratory rate 20, blood pressure 108/62. He is saturating well on room air. Mental status is sharp. Oral cavity negative. Lungs clear. Abdomen soft and nontender. The right lower extremity below the knee is still cellulitic, warm, and somewhat tender, but all of that has improved on a day-by-day basis. There is now considerable wrinkling of the cellulitic area. There is an area of erythema tracking up the right lateral thigh which is about nursing home up to the hip at this point. There is no bullae or skin breakdown present, and that area is neither warm nor tender, but just erythematous. LABORATORIES: Include a white count which bumped up to 11,900, but has a completely normal diff. His creatinine is 0.61. His most recent LFTs were normal. His procalcitonin yesterday was 0.6, down from 8.6 on admission, so a more than 10-fold drop during his course in the hospital. Serologic studies include an anti DNase B which is positive and confirms this is a strep infection. Blood cultures are negative. Flu screen negative. MRSA screen negative. IMAGING: No new imaging has been done. IMPRESSION: This patient is doing reasonably well with what is a very severe group A strep cellulitis of the right lower extremity which was initially associated with septic shock. At this point, we have resolution of his fever and his shock, normalization of his procalcitonin, resolution of the left-shifted white count, though it is still little bit elevated, and a generalized improvement in the appearance of his leg, even as there is still some spreading erythema. RECOMMENDATIONS: 1. Will continue with our aggressive full-dose clindamycin and ceftriaxone therapy. 2. I anticipate sometime over the next few days that the patient will really turn the corner and be ready for discharge on either oral antibiotics for a single dose of dalbavancin, to be determined. 3. I am very concerned about what will happen next time as the patient is getting these more and more severe lower extremity infections every year or two. Oral antibiotic prophylaxis may be worth considering, but in view of the infrequency of the episodes it may not be worth it. Will need to consider this carefully. 4. The patient is aware that he needs to keep his legs elevated whenever possible and also to attempt to lose some weight.
--- NOTE | 2016-07-21 18:52 | PCM.PNMED ---
Subjective Date of Service Jul 21, 2016 Subjective felling better, Right leg hurts 4/10. tingling right leg when standing. No numbness. able to dorsiflex and plantar flex without pain. Exam Vital Signs Vital Sign - Last Date Time Temp Pulse Resp B/P Pulse Ox O2 Delivery O2 Flow Rate FiO2 07/21/16 09:55 36.6 107 20 108/62 95 Room Air 07/15/16 05:41 6.00 Intake and Output 07/20/16 07/20/16 07/21/16 Cumulative From/Thru 15:00 23:00 07:00 07/14/16 02:34 - 07/21/16 05:21 Intake Total 1000 ml 70 ml 41204 ml Output Total 900 ml 26809 ml Balance 100 ml 70 ml 00491 ml Intake Oral 1000 ml 7415 ml IV Total 70 ml 08316 ml Output Urine Total 900 ml 19540 ml # Bowel Movements 1 1 Exam General: Alert, Oriented X3, Cooperative, No Acute Distress, Other (Obese) Eyes: PERRLA, Scleral Anicteric Mouth: Mucous Membr Moist/[place] Chest & Lungs: Clear to auscultation & percussion, Other (normal effort) Cardiovascular: Regular Rate/Rhythm Pulses: Dorsalis Pedis (present and equal) Abdomen: Non-tender, Distended (mild), No masses, Normoactive bowel tones, Soft , Other (obese) Extremities: Warm, Edema (Mild pedal edema R>L), Other (RLE diffusely erythematous from ankle to knee, mild pain to palpation, skin is wrinkled, improving). dorsi/plantar flex without pain Neurological: Grossly Neurologically Intact, Normal Speech, Sensation Intact IVs and Medications Medications Reviewed: Medications were reviewed in detail Lab and Diagnostics Result Diagram: 07/21/16 04307/21/16 0430 Additional Diagnostics PROCEDURE: US VEINOUS LEG DUPLEX UNILATERAL, RIGHT INDICATIONS: CELLULITIS DVT TECHNIQUE: Real-time imaging, as well as color and pulse Doppler interrogation, were performed of the lower extremity deep veins from the inguinal ligament to the popliteal fossa. COMPARISON: None. FINDINGS: The deep veins are normally compressible, and free of intraluminal thrombus. Color and pulse Doppler demonstrate normal phasic intraluminal flow. There is normal augmentation response to distal compression maneuver. IMPRESSION: No evidence of deep venous thrombosis. Dictated by: Shannan Hobbs M.D. on 07/16/2016 at 14:27 Approved by: Shannan Hobbs M.D. on 07/16/2016 at 14:27 Assessment & Plan Faizan Christine is a 61 year old male with Diabetes mellitus, rheumatoid arthritis on Prednisone, obstructive sleep apnea on CPAP, peripheral vascular disease, coronary artery disease with prior [place] and cardiac stenting who presents to [facility] Emergency department with Right Leg cellulitis with Septic shock s/p ICU stay, transfer to [facility] [place] 07/15 #Acute Right lower extremity cellulitis. POA, Improving History of prior cellulitis with Strep in 2014, treated with Linezolid. Patient is immunocompromised from MTX treatment for RA. BCX neg, no DVT on doppler . -Status is improving, skin more wrinkled and pain moderately decreased, WBC wnl now. -Appreciate ID recs on abx regimen, Plan is to continue ceftriaxone and clindamycin per ID for probable streptococcal cellulitis and change to PO antibiotics tomorrow. -Continue to elevate RLE -Percocet, tylenol PO prn for pain -Will plan to resume patient's home medications tonight also. #Constipation Will initiate Senna-doc prn chronic, stable, resolved conditions 1. Septic shock. Present on admission. Secondary to RLE cellulitis, pt met SIRS criteria with leukocytosis, hypotension with source skin infection. Patient hypotensive on admission, non responsive to IV fluids resuscitations and was started on Pressors. Hypotension likely combination of dehydration, antihypertensive medications and possible Adrenal insufficiency. Several evidence of organ dysfunction with lactic acidosis, hypotension and mild encephalopathy, septic shock resolved with antibiotics, hemodynamically stable. #Lactic acidosis in the setting of septic shock. Present on admission, resolved. #Rheumatoid arthritis -s/p stress dose of steroid with hydrocortisone - hold Methotrexate - Currently on Prednisone 5mg PO daily, will resume Plaquenil daily also #Coronary artery disease, s/p stents 2006. Appears to be stable. No anginal or equivalent complaints - Continue statin Aspirin and Plavix - Resuming home meds today #Obstructive sleep apnea with Morbid Obesity -continue home CPAP dispo: Likely discharged towards end of the week once patient transitions to PO abx. diet:heart healthy dvt ppx:HSQ Full code . VTE Prophylaxis: Sub-Q Heparin (Unfractionated) VTE Mechanical Devices: Venous Foot Pump Resuscitation Status: CPR: Attempt Resuscitation Attending Statement The patient was seen and examined together with Dr. Jakub Silverman on 07/21/2016 and I agree with the history, exam and plan as outlined in the note above. Jakub Silverman DO Jul 21, 2016 10:41 Marcelino Wise MD Jul 22, 2016 13:19
[2016-07-22] MEDS: HYDROcodone-APAP 5-325 mg Tablet PO PRN ×4 (00:03→18:37)
--- NOTE | 2016-07-22 03:31 | NUR ---
Shift report Pleasant and cooperative pt, able to make needs known. d/t pain in R calf, pt requests PO PRN pain meds Q6hrs. R foot elevated on pillows for comfort. IV abx infused, pt tolerated it well. 3 Lumen IJ flushed 2x on shift, no issues noted. Bed in low position, call light in reach, will continue with frequent rounding
[2016-07-22 05:27] VITALS: BP 158/77; PULSE 76; RESP 22; O2SAT 97
[2016-07-22] MEDS ORDERED: 0.9% Sodium Chloride 250 ML ONE (07:55)
[2016-07-22] MEDS: cefTRIAXone Inj 2,000 MG in Dextrose 5% Minibag Plus 50 ML IV SCH (08:01)
[2016-07-22] MEDS: Heparin 5,000 Unit/mL Inj SUBQ SCH ×2 (08:01→16:48)
[2016-07-22] MEDS: predniSONE 5 mg Tablet PO SCH (08:01)
[2016-07-22] MEDS: Hydroxychloroqine 200 mg Tablet PO SCH ×2 (08:02→21:10)
[2016-07-22 09:11] LABS: BASOPHILS % (AUTO) 0.5 % (0-3); EOSINOPHILS % (AUTO) 3.5 % (0-5); MONOCYTES % (AUTO) 8.5 % (4-12); Mean Corpuscular Hemoglobin 30.5 pg (27.0-35.0); Mean Corpuscular Volume 90.2 fL (81-100); NEUTROPHILS % (AUTO) 65.5 % (40-74); Platelet Count 203 bil/L (150-400)
[2016-07-22] MEDS: Clindamycin Inj 900 MG in IV Premix 1 EACH IV SCH ×2 (09:13→16:48)
--- NOTE | 2016-07-22 10:10 | PCM.PNMED ---
Subjective Date of Service Jul 22, 2016 Subjective Doing well this morning, no new complaints, has been having more formed BMs. Pain in RLE improving, but still asking for q6h opiates. Exam Vital Signs Vital Sign - Last Date Time Temp Pulse Resp B/P Pulse Ox O2 Delivery O2 Flow Rate FiO2 07/22/16 08:30 CPAP/BIPAP 07/22/16 05:27 36.7 76 22 158/77 97 Intake and Output 07/21/16 07/21/16 07/22/16 Cumulative From/Thru 15:00 23:00 07:00 07/14/16 02:34 - 07/22/16 05:27 Intake Total 672 ml 963 ml 73 ml 95813 ml Output Total 1150 ml 1200 ml 34957 ml Balance -478 ml -237 ml 73 ml 84882 ml Intake Oral 518 ml 900 ml 8833 ml IV Total 154 ml 63 ml 73 ml 53310 ml Output Urine Total 1150 ml 1200 ml 04410 ml # Bowel Movements 0 1 Exam General: Alert, Oriented X3, Cooperative, No Acute Distress, Obese Eyes: Scleral Anicteric Mouth: Mucous Membr Moist/[place] Chest & Lungs: Clear to auscultation & percussion, Other (normal effort) Cardiovascular: Regular Rate/Rhythm Pulses: Dorsalis Pedis (present and equal) Abdomen: Non-tender, non-distended, No masses, Normoactive bowel tones, Soft, Other (obese) Extremities: Warm, dry, without drainage. LLE with chronic stasis dermatitis noted, RLE now woody appearing, nontender to palpation, improving erythema, but tracking up to thigh. Neurological: Grossly Neurologically Intact, Normal Speech, Sensation Intact IVs and Medications Medications Reviewed: Medications were reviewed in detail Lab and Diagnostics Result Diagram: 07/22/1684707/22/1648 Additional Diagnostics PROCEDURE: US VEINOUS LEG DUPLEX UNILATERAL, RIGHT INDICATIONS: CELLULITIS DVT TECHNIQUE: Real-time imaging, as well as color and pulse Doppler interrogation, were performed of the lower extremity deep veins from the inguinal ligament to the popliteal fossa. COMPARISON: None. FINDINGS: The deep veins are normally compressible, and free of intraluminal thrombus. Color and pulse Doppler demonstrate normal phasic intraluminal flow. There is normal augmentation response to distal compression maneuver. IMPRESSION: No evidence of deep venous thrombosis. Dictated by: Shannan Hobbs M.D. on 07/16/2016 at 14:27 Approved by: Shannan Hobbs M.D. on 07/16/2016 at 14:27 Assessment & Plan Faizan Christine is a 61 year old male with Diabetes mellitus, rheumatoid arthritis on Prednisone, obstructive sleep apnea on CPAP, peripheral vascular disease, coronary artery disease with prior OR and cardiac stenting who presents to [facility] Emergency department with Right Leg cellulitis with Septic shock s/p ICU stay, transfer to [facility] 07/15 #Acute Right lower extremity cellulitis. POA, Improving History of prior cellulitis with Strep in 2014, treated with Linezolid. Patient is immunocompromised from MTX treatment for RA. BCX neg, no DVT on doppler . -Status is improving, skin more wrinkled/woody and pain moderately decreased -Appreciate ID recs on abx regimen, Plan is to continue ceftriaxone and clindamycin per ID for probable streptococcal cellulitis and change to PO abx when appropriate -Continue to elevate RLE -Percocet, tylenol PO prn for pain -Leg is more woody, but less tender and bright red. Some mild erythema tracking up right posterior thigh, presumable due to gravity. #Constipation Will initiate Senna-doc prn chronic, stable, resolved conditions 1. Septic shock. Present on admission. Secondary to RLE cellulitis, pt met SIRS criteria with leukocytosis, hypotension with source skin infection. Patient hypotensive on admission, non responsive to IV fluids resuscitations and was started on Pressors. Hypotension likely combination of dehydration, antihypertensive medications and possible Adrenal insufficiency. Several evidence of organ dysfunction with lactic acidosis, hypotension and mild encephalopathy, septic shock resolved with antibiotics, hemodynamically stable. #Lactic acidosis in the setting of septic shock. Present on admission, resolved. #Rheumatoid arthritis, POA -s/p stress dose of steroid with hydrocortisone - hold Methotrexate - Currently on Prednisone 5mg PO daily and also Plaquenil #Coronary artery disease, s/p stents 2006. Appears to be stable. No anginal or equivalent complaints - Continue statin Aspirin and Plavix - Resuming home meds today #Obstructive sleep apnea with Morbid Obesity -continue home CPAP dispo: Likely discharged towards end of the week once patient transitions to PO abx. diet:heart healthy dvt ppx:HSQ Full code . Pain Evaluation: Adequate Pain Control VTE Prophylaxis: Sub-Q Heparin (Unfractionated) VTE Mechanical Devices: Venous Foot Pump Resuscitation Status: CPR: Attempt Resuscitation Attending Statement The patient was seen and examined together with Dr. Hernandez on 07/22/2016 and I agree with the history, exam and plan as outlined in the note above. Jet Hernandez DO Jul 22, 2016 10:10 Marcelino Wise MD Jul 23, 2016 12:57
--- NOTE | 2016-07-22 10:17 | NUR ---
NUTRITION FOLLOW-UP: Assess: 61 yo M w/ sepsis secondary to cellulitis of rt lower extremity which is improving. Pt continues to have variable po intake of 0-100%, however family is bringing in food that pt prefers. ID is following for IV antibiotics. Pt's wt has dropped ~13kg since admit. PMHx: RA, CAD s/p drug eluding stent, JAMILAH on CPAP, HLD, GERD, Diabetes LABS: Reviewed. Guzzler Builder .61, glu 122, Ca 8.4, Alb 3.1 MEDICATIONS: Reviewed. DIET: Heart Healthy, PO varies from 0-100% of meals. GI symptoms/stool: BM x 1 (07/20) Skin integrity: Cellulitis of rt lower extremity-Improving. ANTHROPOMETRICS: Current Wt: 140.2 kg, BMI 45.6kg/m2 Admit Wt: 153.3 kg IBW: 72.7 kg Adj BW:89.5 kg . Wt has dropped 13kg since admit ESTIMATED NEEDS: Calories: 1253-4059 kcal/d (25-30 kcal/kg/d Adj BW) Protein: 105-135 g/d (1.2-1.5 g/kg/d Adj BW) NUTRITION DIAGNOSIS: 1) Inadequate oral intake related to respiratory failure and lethargy as evidenced by need for O2 supplementations and PO intake of 0-100% x 5 days-IMPROVING INTERVENTION: 1) Will decrease supplements to BID as family is bringing in food that pt prefers MONITOR/EVALUATE: PO intake, Labs, BM, Weight, Nutrition status. Will follow per moderate nutrition risk guidelines.
--- NOTE | 2016-07-22 10:43 | NUR ---
Social Work: Continued d/c planning Data: Pt is on day 8 of hospitalization. EMR reviewed, pt discussed in rounds. MD states pt will remain in hospital for 2-3 more days at least. MD states plan continues to be for pt to transition to PO ABX at d/c. USER SUPPORT ANALYST SUPERVISOR will continue to follow if needs arise. Assessment: Pt who is independent at baseline. Plan: Pt will d/c home via POV when medically stable. USER SUPPORT ANALYST SUPERVISOR will continue to follow if needs arise. HITESH Cisneros
[2016-07-22 13:51] VITALS: BP 126/126; PULSE 72; RESP 22; O2SAT 97
--- NOTE | 2016-07-22 18:00 | PROG NOTE ---
[address] [address] PROGRESS NOTE PATIENT: CLEMENT SEGAL : 1955 MR#: [id number] ADMIT: 07/14/2016 JOB ID: [id number] DATE: 07/22/2016 INFECTIOUS DISEASE FOLLOWUP NOTE: REASON FOR FOLLOWUP: Severe streptococcal cellulitis right lower extremity. INTERVAL HISTORY: The patient has been gradually feeling better in that he is not having any more fevers chills or sweats. He has no cough, no abdominal pain, and no GI complaints. He notes that his right lower extremity below the knee continues to be swollen and painful, but it is gradually improving. He is able to get around, but often needs a walker if he is going any long distance due to pain and a bit of instability on that right leg. Today he noticed the appearance of blisters over the cellulitic area, one anteriorly and one posteriorly. PHYSICAL EXAMINATION: Reveals an afebrile gentleman. Note that he has been afebrile now for five days. Temp right now 36.6, pulse 72, respiratory rate 22, blood pressure 126/126 which is not possible so I think that is a misprint; the one before that was 158/77, which makes more sense. He is saturating well on room air this afternoon. He is comfortable and lucid. Oral cavity negative. Lungs clear. Cardiac tones regular rate and rhythm. Abdomen is soft and nontender. The right lower extremity cellulitic area continues to wrinkle and gradually appear better. There is still some fairly significant tenderness posteriorly along the medial aspect of the calf, but gradually better. Two small bullae have appeared, one over the mid tibia and one over the medial calf, but neither of these appears especially impressive or large. LABORATORIES: Include a white count 11,500 today, which has a normal diff associated with it. Creatinine 0.75. No new LFTs have been done. Last procalcitonin was two days ago and was 0.6, down from levels as high as 8.6 on admission. Serologic studies show a positive anti-DNase B which confirms our diagnosis of group A strep. Otherwise all cultures remain negative. IMPRESSION: This is indeed a severe streptococcal cellulitis of the right lower extremity in a patient with a history of a cellulitis like this a year or two ago. This is a group A strep process which was initially associated with septic shock and truly was a life-threatening infection. At this point he is getting better but he just has so much infected tissue and poor lymphatic drainage and venous insufficiency that it is just a very slow go. RECOMMENDATIONS: 1. I would continue with the clindamycin ceftriaxone and watch him day by day in the hospital. 2. As the patient turns the corner, I think that, given the severity and chronicity of this, I would strongly consider giving dalbavancin 1.5 g times a single IV dose prior to discharge. 3. It is worthwhile to have the patient follow up with me in clinic, perhaps on August 03, to make sure all is going well.
--- NOTE | 2016-07-22 19:28 | NUR ---
assumed care/pain Received report from Enid BONILLA at 1140 and assumed care of pt. Pt c/o 6/10 pain in R lower leg. Elevating RLE on pillows, medicated x2 this shift with prn 2 tabs hydrocodone/apap. Pt reports medication effective at decreasing pain to more tolerable 2/10. Call light in reach. Frequent rounding. Care continues.
[2016-07-22 20:43] VITALS: BP 116/74; PULSE 77; RESP 20; O2SAT 94
[2016-07-23] MEDS: Clindamycin Inj 900 MG in IV Premix 1 EACH IV SCH ×3 (00:22→15:44)
[2016-07-23] MEDS: Heparin 5,000 Unit/mL Inj SUBQ SCH ×3 (00:22→15:45)
[2016-07-23] MEDS: HYDROcodone-APAP 5-325 mg Tablet PO PRN ×4 (00:23→19:10)
--- NOTE | 2016-07-23 02:36 | NUR ---
pain patient complains of pain to right leg. rates pain consistently 6/7 medicated with hydrocodone as documented effective relief. rates 3-4 post pain pill
[2016-07-23 04:04] LABS: BASOPHILS % (AUTO) 0.4 % (0-3); EOSINOPHILS % (AUTO) 3.8 % (0-5); MONOCYTES % (AUTO) 10.3 % (4-12); Mean Corpuscular Hemoglobin 30.3 pg (27.0-35.0); Mean Corpuscular Volume 90.8 fL (81-100); NEUTROPHILS % (AUTO) 61.7 % (40-74); Platelet Count 190 bil/L (150-400)
[2016-07-23 05:01] VITALS: BP 114/71; PULSE 67; RESP 20; O2SAT 97
[2016-07-23] MEDS: Hydroxychloroqine 200 mg Tablet PO SCH ×2 (07:34→20:04)
[2016-07-23] MEDS: predniSONE 5 mg Tablet PO SCH (07:34)
[2016-07-23] MEDS: cefTRIAXone Inj 2,000 MG in Dextrose 5% Minibag Plus 50 ML IV SCH (07:35)
[2016-07-23] MEDS ORDERED: CLINDAMYCIN 1% TOPICAL PRN (09:00)
[2016-07-23 10:05] VITALS: BP 149/72; PULSE 72; RESP 20; O2SAT 99
--- NOTE | 2016-07-23 10:42 | NUR ---
Social Work-readiness for discharge: Data:EMR Reviewed. Pt is on day 9 of hospitalization for sepsis per H&P.Pt will likely be ready to discharge later today. KAREL spoke with PT who has cleared pt for home, but recommending FWW. SW reviewed pt's chart, pt has [facility] and SW called [employer]. KAREL informed by [employer] that SW will need to fax in information to [phone] and specify where FWW will need to be delivered and they can deliver today. KAREL fax in information to [facility]. KAREL spoke with pt who is in agreement with plan and would like the walker to be delivered to the hospital. SW will continue to follow. Assessment:Pt who will need Fww. Plan:Pt to discharge home when medically stable vai POV. KAREL has faxed all information into [facility] for Fww delivery. SW will continue to follow. HITESH Cantrell Addendum: 07/23/16 at 1250 by MIRANDA RAMIRES KAREL called [facility] [phone] back and confirmed they have received fax. restuarant crew worker informed KAREL that this order has been put through and is ready for delivery, but worker cannot give SW a confirmed delivery time. Worker anticipates shortly. KAREL will continue to follow. HITESH Cantrell Addendum: 07/23/16 at 1545 by MIRANDA RAMIRES SS SW checked with pt and walker has been delivered to room from [facility], no other needs. Miranda Ramires,HITESH
--- NOTE | 2016-07-23 12:13 | PCM.PNMED ---
Subjective Date of Service Jul 23, 2016 Subjective Doing well this morning, has had normal BMs and his RLE pain is even more improved. Denies any fevers or chills. Will be seeing PT today for evaluation. Exam Vital Signs Vital Sign - Last Date Time Temp Pulse Resp B/P Pulse Ox O2 Delivery O2 Flow Rate FiO2 07/23/16 10:45 Room Air 07/23/16 10:05 36.5 72 20 149/72 99 Intake and Output 07/22/16 07/22/16 07/23/16 Cumulative From/Thru 15:00 23:00 07:00 07/14/16 02:34 - 07/23/16 06:11 Intake Total 800 ml 1260 ml 1000 ml 38064 ml Output Total 560 ml 800 ml 975 ml 42285 ml Balance 240 ml 460 ml 25 ml 66495 ml Intake Oral 800 ml 1200 ml 1000 ml 26257 ml IV Total 60 ml 85963 ml Output Urine Total 560 ml 800 ml 975 ml 74256 ml # Bowel Movements 0 1 Exam General: Alert, Oriented X3, Cooperative, No Acute Distress, Obese Eyes: Scleral Anicteric Mouth: Mucous Membr Moist/[place] Chest & Lungs: Clear to auscultation & percussion, Other (normal effort) Cardiovascular: Regular Rate/Rhythm Pulses: Dorsalis Pedis (present and equal) Abdomen: Non-tender, non-distended, No masses, Normoactive bowel tones, Soft, Other (obese) Extremities: Warm, dry, without drainage. LLE with chronic stasis dermatitis noted, RLE now woody appearing, nontender to palpation, minor tenderness to palp of lateral thigh. Neurological: Grossly Neurologically Intact, Normal Speech, Sensation Intact IVs and Medications Medications Reviewed: Medications were reviewed in detail Lab and Diagnostics Result Diagram: 07/23/16 03307/23/16 0330 Additional Diagnostics PROCEDURE: US VEINOUS LEG DUPLEX UNILATERAL, RIGHT INDICATIONS: CELLULITIS DVT TECHNIQUE: Real-time imaging, as well as color and pulse Doppler interrogation, were performed of the lower extremity deep veins from the inguinal ligament to the popliteal fossa. COMPARISON: None. FINDINGS: The deep veins are normally compressible, and free of intraluminal thrombus. Color and pulse Doppler demonstrate normal phasic intraluminal flow. There is normal augmentation response to distal compression maneuver. IMPRESSION: No evidence of deep venous thrombosis. Dictated by: Shannan Hobbs M.D. on 07/16/2016 at 14:27 Approved by: Shannan Hobbs M.D. on 07/16/2016 at 14:27 Assessment & Plan Faizan Christine is a 61 year old male with Diabetes mellitus, rheumatoid arthritis on Prednisone, obstructive sleep apnea on CPAP, peripheral vascular disease, coronary artery disease with prior AR and cardiac stenting who presents to [facility] Emergency department with Right Leg cellulitis with Septic shock s/p ICU stay, transfer to [facility] 07/15 #Acute Right lower extremity cellulitis. POA, Improving History of prior cellulitis with Strep in 2014, treated with Linezolid. Patient is immunocompromised from MTX treatment for RA. BCX neg, no DVT on doppler . -Status is improving, skin more wrinkled/woody and pain moderately decreased -Appreciate ID recs on abx regimen, Plan is to continue ceftriaxone and clindamycin per ID for probable streptococcal cellulitis and change to PO abx when appropriate -Continue to elevate RLE -Percocet, tylenol PO prn for pain -Leg is more woody, but less tender and bright red. Some mild erythema tracking up right posterior thigh, presumable due to gravity. -PT evaluation for discharge safety today. -Will continue Clinda and Ceftriaxone through today then give patient 1.5g of Dalbavancin tomorrow upon discharge. -Consider Podiatry referral for foot care and Chlorhexidine foot washes at home. #Constipation Will initiate Senna-doc prn chronic, stable, resolved conditions 1. Septic shock. Present on admission. Secondary to RLE cellulitis, pt met SIRS criteria with leukocytosis, hypotension with source skin infection. Patient hypotensive on admission, non responsive to IV fluids resuscitations and was started on Pressors. Hypotension likely combination of dehydration, antihypertensive medications and possible Adrenal insufficiency. Several evidence of organ dysfunction with lactic acidosis, hypotension and mild encephalopathy, septic shock resolved with antibiotics, hemodynamically stable. #Lactic acidosis in the setting of septic shock. Present on admission, resolved. #Rheumatoid arthritis, POA -s/p stress dose of steroid with hydrocortisone - hold Methotrexate - Currently on Prednisone 5mg PO daily and also Plaquenil #Coronary artery disease, s/p stents 2006. Appears to be stable. No anginal or equivalent complaints - Continue statin Aspirin and Plavix - Resuming home meds today #Obstructive sleep apnea with Morbid Obesity -continue home CPAP dispo: Discharge tomorrow with Dalbavanmynor and follow up with DOTTIE Funez. diet:heart healthy dvt ppx:HSQ Full code . Pain Evaluation: Adequate Pain Control VTE Prophylaxis: Sub-Q Heparin (Unfractionated) VTE Mechanical Devices: Venous Foot Pump Resuscitation Status: CPR: Attempt Resuscitation Attending Statement The patient was seen and examined together with Dr. Hernandez on 07/23/2016 and I agree with the findings, assessment and plan as stated above. Jet Hernandez DO Jul 23, 2016 12:13 Marcelino Wise MD Jul 24, 2016 13:11
[2016-07-23] MEDS: Chlorhexidine 4% 120 mL Topical Solution TOPICAL SCH (14:15)
[2016-07-23 15:04] VITALS: BP 122/77; PULSE 81; RESP 20; O2SAT 95
--- NOTE | 2016-07-23 17:57 | NUR ---
Shift note Compliant pt, able to make needs known. Uses call light appropriately. d/t pain in R foot, pt asks to stay in bed, including meals. Asks for PRN PO pain meds Q6hrs. Pain level goes from 710-3/10 post medication. Pt worked with PT. FWW delivered earlier this theodore by a 3rd constitution party. For pts knowledge, info from Update printed re Dalbavancin . Per MD note, pt will receive a 1x dose at discharge. Bed in low position, call light in reach, will continue with frequent rounding.
[2016-07-23 19:55] VITALS: BP 128/70; PULSE 84; RESP 18; O2SAT 95
[2016-07-24] MEDS: Clindamycin Inj 900 MG in IV Premix 1 EACH IV SCH ×2 (00:42→08:33)
[2016-07-24] MEDS: Heparin 5,000 Unit/mL Inj SUBQ SCH ×2 (00:42→08:54)
[2016-07-24] MEDS: HYDROcodone-APAP 5-325 mg Tablet PO PRN ×3 (00:42→12:21)
[2016-07-24 04:53] LABS: BASOPHILS % (AUTO) 0.6 % (0-3); EOSINOPHILS % (AUTO) 3.2 % (0-5); MONOCYTES % (AUTO) 11.2 % (4-12); Mean Corpuscular Hemoglobin 30.7 pg (27.0-35.0); Mean Corpuscular Volume 90.9 fL (81-100); NEUTROPHILS % (AUTO) 60.8 % (40-74); Platelet Count 191 bil/L (150-400)
[2016-07-24 04:58] VITALS: BP 134/82; PULSE 69; RESP 18; O2SAT 96
--- NOTE | 2016-07-24 05:29 | NUR ---
NOC activity Pt denies chest pain, sob, n/v and abd discomfort. Complains of pain on his legs but states that it's much better than last time. Administered PRN vicodin for pain. No complains after. HS meds administered as scheduled. Hourly rounding done, AM Lab draw to IJ, now running at KVO rate. Hourly rounding done, call light within reach.
[2016-07-24] MEDS: Hydroxychloroqine 200 mg Tablet PO SCH (08:35)
[2016-07-24] MEDS: predniSONE 5 mg Tablet PO SCH (08:35)
[2016-07-24] MEDS: cefTRIAXone Inj 2,000 MG in Dextrose 5% Minibag Plus 50 ML IV SCH (08:36)
[2016-07-24] MEDS: Chlorhexidine 4% 120 mL Topical Solution TOPICAL SCH (08:54)
--- NOTE | 2016-07-24 09:19 | PCM.DIMED ---
Jakub Silverman DO 07/24/16 0919: Discharge Instructions Date of Service Jul 24, 2016 Dates of Hospitalization Jul 14, 2016 at 04:20 Discharge Diagnosis Discharge Diagnosis Acute Right lower extremity cellulitis. POA, Improving -Follow-up with Dr. Bates on Jul. Call his office to make appt. Constipation,resolved Septic shock. Present on admission. resolved Rheumatoid arthritis, POA, stable Coronary artery disease, s/p stents 2007, stable - eat healthy, Heart-healthy diet #Obstructive sleep apnea with Morbid Obesity, stable Diet Heart Healthy Activity No restrictions (Front wheel walker) Call your provider Fever or Chills, Shortness of breath, Excessive diarrhea Patient Instructions For your stay, you were admitted for severe cellulitis of the Right lower feet. Since antibiotics has been given, you have been doing much better. Please follow-up with your primary care provider and Infectious Disease Dr. Funez within 1wks as noted above. Seek care immediately if: * Your wound gets larger and more painful. * You have a fever. * You have a thin, karimi-brown discharge coming from your infected skin area. * You feel a crackling under your skin when you touch it. * You have purple dots or bumps on your skin, or you see bleeding under your skin. * You have new swelling and pain in your legs. * You have sudden trouble breathing or chest pain. * The red, warm, swollen area gets larger. * You see red streaks coming from the infected area. * You feel weak and dizzy. Follow-up Provider: МАРИЯ TOBAR MD Follow-up with PCP in: 1 week Provider: Jean Funez MD Follow-up in: 1 week (Jul) Marcelino Wise MD 07/24/16 1312: Jakub Silverman DO Jul 24, 2016 09:19 Marcelino Wise MD Jul 24, 2016 13:12
[2016-07-24] MEDS ORDERED: Dalbavancin Inj 1,500 MG in Dextrose 5% 500 ML IV ONE (10:45)
[2016-07-24 13:07] VITALS: BP 127/75; PULSE 66; RESP 18; O2SAT 96
--- NOTE | 2016-07-24 13:14 | NUR ---
Social Work-discharge: Data:EMR Reviewed. Pt is on day 10 of hospitalization for sepsis per H&P. Pt is medically stable to discharge home today. PT has cleared pt for home no needs expect for Fww. SW had Fww delivered to room yesterday from [facility]. Pt's family to provide transport home today. Pt agreeable to plan. All updated and agreeable to plan. Assessment:pt who is independent at baseline. Plan:Pt to discharge home today via POV. FWW delivered to the room from [facility]. No other discharge needs. All updated and agreeable to plan. HITESH Cantrell
[2016-07-24] MEDS ORDERED: HYDR-4003 PO (13:21)
--- NOTE | 2016-07-24 15:15 | NUR ---
Discharge Pt d/c home with son at 1333 via wc by an aide. Pt medicated for pain 1 hr prior. 3 lumen IJ d/c by ASSISTANT TERMINAL MANAGER prior to leaving. Discharge info discussed with pt and son. All questions answered. Emphasis provided on f/u with PCP and Dr Funez for 08/03, both to be scheduled by pt. Pain meds Rx per pts request. All personal belongings left with pt. VSS.
--- NOTE | 2016-07-24 15:22 | PCM.DC.MED ---
Discharge Summary Date of Service Jul 24, 2016 Dates of Hospitalization Date of Hospital Admission Jul 14, 2016 at 04:20 Date of Discharge: Jul 24, 2016 Providers: Admitting Physician: Hao Peacock MD Primary Care Physician: Мария Pennington MD Attending Physician: Hao Peacock MD Diagnosis at Time of Discharge Diagnosis at Time of Discharge Acute Right lower extremity cellulitis. POA, Improving -Follow-up with Dr. Bates on Jul. Call his office to make appt. Constipation,resolved Septic shock. Present on admission. resolved Rheumatoid arthritis, POA, stable Coronary artery disease, s/p stents 2006, stable - eat healthy, Heart-healthy diet #Obstructive sleep apnea with Morbid Obesity, stable Consultations INFECTIOUS DISEASE FOLLOWUP NOTE: REASON FOR FOLLOWUP: IMPRESSION: This is indeed a severe streptococcal cellulitis of the right lower extremity in a patient with a history of a cellulitis like this a year or two ago. This is a group A strep process which was initially associated with septic shock and truly was a life-threatening infection. At this point he is getting better but he just has so much infected tissue and poor lymphatic drainage and venous insufficiency that it is just a very slow go. RECOMMENDATIONS: 1. I would continue with the clindamycin ceftriaxone and watch him day by day in the hospital. 2. As the patient turns the corner, I think that, given the severity and chronicity of this, I would strongly consider giving dalbavancin 1.5 g times a single IV dose prior to discharge. 3. It is worthwhile to have the patient follow up with me in clinic, perhaps on August 03, to make sure all is going well. Jean Funez MD 07/22/16 1650 Procedures Other Diagnostics PROCEDURE: US VEINOUS LEG DUPLEX UNILATERAL, RIGHT INDICATIONS: CELLULITIS DVT TECHNIQUE: Real-time imaging, as well as color and pulse Doppler interrogation, were performed of the lower extremity deep veins from the inguinal ligament to the popliteal fossa. COMPARISON: None. FINDINGS: The deep veins are normally compressible, and free of intraluminal thrombus. Color and pulse Doppler demonstrate normal phasic intraluminal flow. There is normal augmentation response to distal compression maneuver. IMPRESSION: No evidence of deep venous thrombosis. Dictated by: Shannan Hobbs M.D. on 07/16/2016 at 14:27 Approved by: Shannan Hobbs M.D. on 07/16/2016 at 14:27 Brief History Faizan Christine is a 61 year old male with Diabetes mellitus, rheumatoid arthritis on Prednisone, obstructive sleep apnea on CPAP, peripheral vascular disease, coronary artery disease with prior OR and cardiac stenting who presents to [facility] Emergency department with right leg swelling and pain that began last night. Associated symptoms includes fever at home of 102.7F and chills, and increased pain tonight. He also reports developed shortness of breath this evening, especially with exertion. He admits to nausea but denies chest pain, abdominal pain, or cough. Denies any trauma on the leg and no insect bites or scratching. Family reported that the patient was confused and not himself tonight. He was at baseline 2 days ago and went to work. Patient had prior history of cellulitis in 2014. He has Rheumatoid arthritis and is on immunosuppressant agents including daily Prednisone. Case discussed with Dr Orona, Hypotension on admission, fluids given and eventually Dopamine started. Broad spectrum antibiotics started, Influenza test negative. Hospital Course Faizan Christine is a 61 year old male with Diabetes mellitus, rheumatoid arthritis on Prednisone, obstructive sleep apnea on CPAP, peripheral vascular disease, coronary artery disease with prior OR and cardiac stenting who presents to [facility] Emergency department with Right Leg cellulitis with Septic shock s/p ICU stay, [place] [facility] #Acute Right lower extremity cellulitis. POA, Improving History of prior cellulitis with Strep in 2014, treated with Linezolid. Patient is immunocompromised from MTX treatment for RA. BCX neg, no DVT on doppler . -Status is improving, skin more wrinkled/woody and pain moderately decreased -Percocet, tylenol PO prn for pain -Given Clinda and Ceftriaxone throughout stay. Added 1x dosed 1.5g of Dalbavancin prior to discharge. -Consider Podiatry referral for foot care and Chlorhexidine foot washes at home. #Constipation Will initiate Senna-doc prn chronic, stable, resolved conditions 1. Septic shock. Present on admission. Secondary to RLE cellulitis, pt met SIRS criteria with leukocytosis, hypotension with source skin infection. Patient hypotensive on admission, non responsive to IV fluids resuscitations and was started on Pressors. Hypotension likely combination of dehydration, antihypertensive medications and possible Adrenal insufficiency. Several evidence of organ dysfunction with lactic acidosis, hypotension and mild encephalopathy, septic shock resolved with antibiotics, hemodynamically stable. #Lactic acidosis in the setting of septic shock. Present on admission, resolved. #Rheumatoid arthritis, POA -s/p stress dose of steroid with hydrocortisone - hold Methotrexate - Currently on Prednisone 5mg PO daily and also Plaquenil #Coronary artery disease, s/p stents 2006. Appears to be stable. No anginal or equivalent complaints - Continue statin Aspirin and Plavix - Resuming home meds today #Obstructive sleep apnea with Morbid Obesity -continue home CPAP Exam Vital Signs (Last) Date Time Temp Pulse Resp B/P Pulse Ox O2 Delivery O2 Flow Rate FiO2 07/24/16 13:07 36.4 66 18 127/75 96 Room Air Exam General: Alert, Oriented X3, Cooperative, No Acute Distress, Obese Eyes: Scleral Anicteric Mouth: Mucous Membr Moist/Hurricane Chest & Lungs: Clear to auscultation & percussion, Other (normal effort) Cardiovascular: Regular Rate/Rhythm Pulses: Dorsalis Pedis (present and equal) Abdomen: Non-tender, non-distended, No masses, Normoactive bowel tones, Soft, Other (obese) Extremities: Warm, dry, without drainage. LLE with chronic stasis dermatitis noted, RLE now woody appearing, nontender to palpation, minor tenderness to palp of lateral thigh. no pain with dorsiflex or plantar flex Neurological: Grossly Neurologically Intact, Normal Speech, Sensation Intact Test 07/14/16 02:48 07/14/16 07:33 07/14/16 11:55 07/15/16 06:40 Erythrocyte Sedimentation Rate 1mm/hr (0-30) Prothrombin Time 11.3sec (8.1-12.5) Prothromb Time International Ratio 1.05ratio Activated Partial Thromboplast Time 23.3sec (22.8-33.0) D-Dimer 1.7mg/L (<0.50) Troponin T 0.010ug/L (0.0-0.011) Pro-B-Type Natriuretic Peptide 308.0pg/mL (0-210) Lipase 30U/L (13-60) Urine Color Straw (YELLOW) Urine Appearance Hazy (CLEAR,HAZY) Urine pH 6.0 (5.0-8.0) Urine Specific [place] 1.025 (1.003-1.035) Urine Protein 100mg/dL (NEG,TRACE) Urine Glucose (UA) Negativemg/dL (NEGATIVE) Urine Ketones Negativemg/dL (NEGATIVE) Urine Occult Blood Trace (NEGATIVE) Urine Nitrite Negative (NEGATIVE) Urine Bilirubin Negative (NEGATIVE) Urine Urobilinogen Normalmg/dL (NORMAL) Urine Leukocyte Esterase Negative (NEGATIVE) Urine RBC 0-2/hpf (0-2) Urine WBC 0-5/hpf (0-5) Urine Epithelial Cells Occasional/hpf (NONE-MOD) Urine Crystals Amorphous urates (NONE Urine Bacteria None/hpf (NONE-FEW) Urine Hyaline Casts None/lpf (NONE) Urine Granular Casts None seen (NONE SEEN) Urine Waxy Casts None seen (NONE SEEN) Urine Red Blood Cell Casts None seen (NONE SEEN) Urine White Blood Cell Casts None seen (NONE SEEN) Urine Mucus None seen (None Seen) Urine Trichomonas None seen (NONE SEEN) Urine Yeast None (NONE SEEN) Urinalysis Comment None Urine Culture Reflexed Not indicated Streptozyme 175.2IU/mL (0.0-200.0) Anti-DNase B (Streptococcal) 263U/mL (0-120) Hold Purple Top Tube Received (Received) Hold Blue Top Tube Received (Received) Lactic Acid Level 1.7mmol/L (0.4-2.0) Hold [place] Top Tube Received (Received) Test 07/19/16 08:50 07/24/16 04:30 Phosphorus Level 2.9mg/dL (2.5-4.9) Magnesium Level 2.1mg/dL (1.6-2.6) Total Bilirubin 1.6mg/dL (0.0-1.2) Aspartate Amino Transf (AST/SGOT) 27U/L (0-50) Alanine Aminotransferase (ALT/SGPT) 39U/L (0-44) Alkaline Phosphatase 92U/L (25-160) Total Protein 5.9g/dL (6.4-8.4) Albumin 3.1g/dL (3.4-5.0) White Blood Count 10.1th/mm3 (3.8-10.1) Red Blood Count 4.72mil/mm3 (4.40-5.80) Hemoglobin 14.5g/dL (13.8-17.2) Hematocrit 42.9% (41.0-50.0) Mean Corpuscular Volume 90.9fL (81-100) Mean Corpuscular Hemoglobin 30.7pg (27.0-35.0) Mean Corpuscular Hemoglobin Concent 33.8% (32.0-37.0) Red Cell Distribution Width 14.2% (12.3-15.4) Platelet Count 191bil/L (150-400) Neutrophils (%) (Auto) 60.8% (40-74) Lymphocytes (%) (Auto) 23.3% (14-46) Monocytes (%) (Auto) 11.2% (4-12) Eosinophils (%) (Auto) 3.2% (0-5) Basophils (%) (Auto) 0.6% (0-3) Sodium Level 134mEq/L (134-144) Potassium Level 4.9mEq/L (3.5-5.2) Chloride Level 100mEq/L (97-108) Carbon Dioxide Level 25mmol/L (18-29) Blood Urea Nitrogen 13mg/dL (6-24) Creatinine 0.60mg/dL (0.76-1.27) Estimat Glomerular Filtration Rate 147mL/min (>59) Glucose Level 118mg/dL (60-99) Calcium Level 8.2mg/dL (8.5-10.1) Procalcitonin 0.20ng/mL (See Comment) Discharge Medications Discharge Medications Aspirin (Aspir-Low) 81 Mg Tablet.dr 81 MG PO DAILY (Reported) Atorvastatin Calcium (Atorvastatin Calcium) 80 Mg Tablet 80 MG PO HS (Reported) Clopidogrel Bisulfate (Plavix) 75 Mg Tablet 75 MG PO Q48 (Reported) Hydroxychloroquine Sulfate (Hydroxychloroquine Sulfate) 200 Mg Tablet 200 MG PO BID (Reported) Methotrexate Sodium (Methotrexate) 2.5 Mg Tablet 6 TAB PO QW (Reported) Metoprolol Tartrate (Metoprolol Tartrate) 50 Mg Tablet 50 MG PO BID (Reported) Prednisone (PredniSONE) 5 Mg Tab 5 MG PO DAILY (Reported) Ranitidine (Ranitidine) 300 Mg Tablet 300 MG PO BID (Reported) As needed Hydrocodone-Acetaminophen 5-325 mg (Hydrocodone-Acetaminophen 5-325 mg) 1 Each Tablet 2 TABLET PO Q6H PRN PRN For Moderate Pain Prescribed by: MEGA SILVERMAN DO Followup Plan Discharge Diet: Heart Healthy Discharge Activity: No restrictions (Front wheel walker) Patient Instructions For your stay, you were admitted for severe cellulitis of the Right lower feet. Since antibiotics has been given, you have been doing much better. Please follow-up with your primary care provider and Infectious Disease Dr. Funez within 1wks as noted above. Seek care immediately if: * Your wound gets larger and more painful. * You have a fever. * You have a thin, karimi-brown discharge coming from your infected skin area. * You feel a crackling under your skin when you touch it. * You have purple dots or bumps on your skin, or you see bleeding under your skin. * You have new swelling and pain in your legs. * You have sudden trouble breathing or chest pain. * The red, warm, swollen area gets larger. * You see red streaks coming from the infected area. * You feel weak and dizzy. Follow-up Provider: МАРИЯ PENNINGTON MD Follow-up with PCP in: 1 week Provider: Jean Funez MD Follow-up in: 1 week (Jul) Time spent 35 minutes Attending Statement The patient was seen and examined together with Dr. Mega Silverman on 07/24/2016 and I have added additional information to the note above copies to: МАРИЯ PENNINGTON MD, Phuc H DO Jul 24, 2016 15:22 Marcelino Wise MD Aug 02, 2016 10:54
== END 2016-07-24 13:40 | disposition home or self-care (01) | DRG 871 ==
LOC: SED 02:30 → CCU 04:20 → PCC 07-15 14:56 → MPC 07-15 21:49
PROVIDERS: ADMIT Hospitalist; ATTEND Hospitalist
PROC: 02HV33Z Insertion of Infusion Device into Superior Vena Cava, Percutaneous Approach (ICD-10-PCS; principal; 2016-07-14)
PROC: 4A033R1 Measurement of Arterial Saturation, Peripheral, Percutaneous Approach (ICD-10-PCS; 2016-07-14)
DX: A41.9 Sepsis, unspecified organism (principal); R65.21 Severe sepsis with septic shock; L03.115 Cellulitis of right lower limb; E87.2 Acidosis; Z68.42 Body mass index [BMI] 45.0-49.9, adult; M06.9 Rheumatoid arthritis, unspecified; Z79.52 Long term (current) use of systemic steroids; E11.8 Type 2 diabetes mellitus with unspecified complications; Z79.82 Long term (current) use of aspirin; I25.2 Old myocardial infarction; I10 Essential (primary) hypertension; E78.5 Hyperlipidemia, unspecified; Z87.891 Personal history of nicotine dependence; I25.10 Atherosclerotic heart disease of native coronary artery without angina pectoris; Z95.5 Presence of coronary angioplasty implant and graft; G47.33 Obstructive sleep apnea (adult) (pediatric); E66.01 Morbid (severe) obesity due to excess calories; E86.0 Dehydration; B95.0 Streptococcus, group A, as the cause of diseases classified elsewhere; I89.0 Lymphedema, not elsewhere classified; K59.00 Constipation, unspecified

== ENCOUNTER 2016-08-02 15:53 | Emergency (ER) | payer OTHER ==
[~2016-08-02] VITALS: Ht 175.3 cm; Wt 136.4 kg
[~2016-08-02 15:53] MED LIST changes: +HYDR-4003 PO; -LINE600T2 PO
[2016-08-02 16:40] VITALS: BP 120/77; PULSE 72; RESP 18; O2SAT 96
[2016-08-02 19:54] LABS: EOSINOPHILS % (AUTO) 3.2 % (0-5); MONOCYTES % (AUTO) 10.8 % (4-12); Mean Corpuscular Hemoglobin 30.3 pg (27.0-35.0); Mean Corpuscular Volume 90.7 fL (81-100); NEUTROPHILS % (AUTO) 54.4 % (40-74); Platelet Count 334 bil/L (150-400)
[2016-08-02] MEDS ORDERED: HYDROcodone-APAP 5-325 mg Tablet PO ONE (19:55)
--- NOTE | 2016-08-02 20:28 | ED.REPORT ---
HPI-Rash / Abscess Date of Service Aug 02, 2016 ED Provider: Bj Nguyen PA-C Manual is a 61-year-old male with a chief complaint of right leg swelling. He reports he was hospitalized 2 half weeks ago for sepsis secondary to cellulitis in the right leg. He been treated by Dr. Funez. His recovery then progressing well when today the leg became warm, tense swollen and painful and a relatively short period of time. Treated with Dalbavancin at discharge July 24. Denies fever, chills, malaise, vomiting, diarrhea, abdominal pain, wheezing, cough, shortness of breath, chest pain, palpitations. Nursing Notes Stated Complaint: LEG INFECFTION RIGHT LEG Chief Complaint: Extremity Trauma Nursing Notes Reviewed: Yes Allergies: Coded Allergies: No Known Allergies (Verified Allergy, Unknown, 10/18/14) No Known Drug Allergies (Verified Allergy, Unknown, 07/14/16) Scheduled Aspirin (Aspir-Low) 81 Mg Tablet.dr 81 MG PO DAILY Atorvastatin Calcium (Atorvastatin Calcium) 80 Mg Tablet 80 MG PO HS Clopidogrel Bisulfate (Plavix) 75 Mg Tablet 75 MG PO Q48 Hydroxychloroquine Sulfate (Hydroxychloroquine Sulfate) 200 Mg Tablet 200 MG PO BID Linezolid (Linezolid) 600 Mg Tablet 600 MG PO BID Methotrexate Sodium (Methotrexate) 2.5 Mg Tablet 6 TAB PO QW Metoprolol Tartrate (Metoprolol Tartrate) 50 Mg Tablet 50 MG PO BID Prednisone (PredniSONE) 5 Mg Tab 5 MG PO DAILY Ranitidine (Ranitidine) 300 Mg Tablet 300 MG PO BID Scheduled PRN Acetaminophen (Acetaminophen) 500 Mg Tablet 1,000 MG PO Q6H PRN PRN For Pain Hydrocodone-Acetaminophen 5-325 mg (Hydrocodone-Acetaminophen 5-325 mg) 1 Each Tablet 2 TABLET PO Q6H PRN PRN For Moderate Pain oxyCODONE (oxyCODONE) 5 Mg Tablet 5 MG PO Q4H PRN PRN For Pain General Time Seen by MD: 19:42 Chief Complaint Red area Past Medical History Past Medical History coronary artery disease with prior MD Rheumatoid arthritis venous insufficiency arthritis Reports: Diabetes mellitus, Hyperlipidemia, Hypertension Past Surgical History 2 cardiac stent placements Smoking History Former Smoker Social History Alcohol Use: Denies alcohol use Drug Use: Denies drug use Other Social History: Ambulatory Status Independent Review of Systems Review of Systems Note: Negative unless stated otherwise in history of present illness Physical Exam General: Well appearing, well developed, well nourished, no acute distress. Head: Atraumatic, normocephalic. Eyes: No scleral icterus or injection. No discharge. Vision grossly intact. ENT: Voice clear, hearing grossly intact. Skin: Warm and dry. Right le cm x 2 cm area of crust on anterior winn surrounded by erythema. 3 + pitting edema. Jay edema, dry, flaking skin. Calf diameter greater than left. PT and DP pulses not appreciated Left leg: Jay edema, no pitting. Neurological: Grossly nonfocal. Psychological: alert and oriented. Speech appropriate, linear and logical. Behavior appropriate. Initial Vital Signs Vital Signs (First) Date Time Temp Pulse Resp B/P Pulse Ox O2 Delivery O2 Flow Rate FiO2 08/02/16 16:40 37.0 72 18 120/77 96 Initial VS: Reviewed, Vital signs normal Interpretation & Diagnostics Lab Results Interpretation Result Diagram: 08/02/16193808/02/161938 Test 08/02/16 19:39 White Blood Count 7.8th/mm3 (3.8-10.1) Red Blood Count 5.08mil/mm3 (4.40-5.80) Hemoglobin 15.4g/dL (13.8-17.2) Hematocrit 46.1% (41.0-50.0) Mean Corpuscular Volume 90.7fL (81-100) Mean Corpuscular Hemoglobin 30.3pg (27.0-35.0) Mean Corpuscular Hemoglobin Concent 33.4% (32.0-37.0) Red Cell Distribution Width 13.6% (12.3-15.4) Platelet Count 334bil/L (150-400) Neutrophils (%) (Auto) 54.4% (40-74) Lymphocytes (%) (Auto) 30.3% (14-46) Monocytes (%) (Auto) 10.8% (4-12) Eosinophils (%) (Auto) 3.2% (0-5) Basophils (%) (Auto) 1.0% (0-3) Sodium Level 136mEq/L (134-144) Potassium Level 4.3mEq/L (3.5-5.2) Chloride Level 99mEq/L (97-108) Carbon Dioxide Level 25mmol/L (18-29) Blood Urea Nitrogen 13mg/dL (6-24) Creatinine 0.74mg/dL (0.76-1.27) Estimat Glomerular Filtration Rate 115mL/min (>59) Glucose Level 113mg/dL (60-99) Calcium Level 9.3mg/dL (8.5-10.1) Total Bilirubin 0.9mg/dL (0.0-1.2) Aspartate Amino Transf (AST/SGOT) 26U/L (0-50) Alanine Aminotransferase (ALT/SGPT) 40U/L (0-44) Alkaline Phosphatase 101U/L (25-160) Total Protein 8.5g/dL (6.4-8.4) Albumin 3.9g/dL (3.4-5.0) Hold [place] Top Tube Received (Received) US Soft Tissue/Musculoskeletal PROCEDURE: US VEINOUS LEG DUPLEX UNILATERAL, RIGHT INDICATIONS: unilateral leg swelling IMPRESSION: No DVT in the right lower extremity. Re-Eval/Medical Decision Med Decision/Clinical Course 41-year-old male with recent history of sepsis secondary to right leg cellulitis presents to the emergency department with right leg swelling. Patient states he was discharged from the hospital approximately a week ago, and recovering well. At that time both legs were equal in size. Over the last day the right leg has become significantly larger than the left, red tense tender and hot. Venous duplex ultrasound reveals no DVT. Labs and vitals are reassuring. I discussed The case with the patient's infectious disease specialist, Dr. Funez who met with and examined the patient. I treated the patient according to his recommendations which were linezolid 600 twice a day 10 days, follow- up in one week. Provide the patient with prescription for acetaminophen per his request as well as a small amount of oxycodone for pain. Provided return precautions and answered all questions to the best my ability. Consultation : Referral / Consult Name: Jean Funez MD Call Returned at: 20:53 Note: I discuss discussed the case with Dr. Funez who met with and examined the patient. He advises Linazolid 600 mg twice a day x 10 days. He has the patient to follow-up in his office on the . He also advises no work. Discharge & Departure Impression: Primary Impression: Cellulitis Site of cellulitis: extremity Site of cellulitis of extremity: lower extremity Laterality: right Qualified Code: L03.115 - Cellulitis of right lower limb Disposition: Home Discharge Condition All VS Reviewed: Yes Condition: Stable Patient Instructions: Cellulitis (ED) Additional Instructions: Evaluation for right leg swelling the emergency department. Ultrasound revealed no blood clot, so this appears to be a worsening of her pre-existing cellulitis. We discussed the case with Dr. Funez who examined her leg. He recommends Linezolid 600 mg twice a day for 10 days. We gave you your first dose in the emergency department. He also asked that you follow-up in his office on August 10. Return to emergency department for new or worsening symptoms including fever, chills, feeling ill, cold sweats. Referrals: Jean Funez MD EDSupervising Provider for APC: Tim Stewart DO copies to: МАРИЯ TOBAR MD, Seth PA-C Aug 02, 2016 20:27
[2016-08-02] MEDS ORDERED: LINE600T7 PO (21:03)
[2016-08-02 21:25] VITALS: BP 122/78; PULSE 70; RESP 16; O2SAT 97
--- NOTE | 2016-08-02 21:25 | DRSVH ---
PROCEDURE: US VEINOUS LEG DUPLEX UNILATERAL, RIGHT INDICATIONS: unilateral leg swelling TECHNIQUE: Real-time imaging, as well as color and pulse Doppler interrogation, were performed of the lower extr emity deep veins from the inguinal ligament to the popliteal fossa. COMPARISON: [facility], [place], US VENOUS LEG DPLX UNI RT, 07/16/2016, 11:48. FINDINGS: The deep veins are normally compressible, and free of intraluminal thrombus. Color and pu lse Doppler demonstrate normal phasic intraluminal flow. There is normal augmentation response to di stal compression maneuver. IMPRESSION: No DVT in the right lower extremity. Dictated by: Dolores Fierro M.D. on 08/02/2016 at 21:23 Approved by: Dolores Fierro M.D. on 08/02/2016 at 21:23
[2016-08-02] MEDS ORDERED: OXYC5TAB72 PO (21:28)
[2016-08-02] MEDS ORDERED: ACET-171 PO (21:28)
== END 2016-08-02 21:28 | disposition home or self-care (01) ==
LOC: SED 15:53
DX: L03.115 Cellulitis of right lower limb (principal); I25.10 Atherosclerotic heart disease of native coronary artery without angina pectoris; E11.9 Type 2 diabetes mellitus without complications; E78.5 Hyperlipidemia, unspecified; I10 Essential (primary) hypertension; Z79.82 Long term (current) use of aspirin; Z87.891 Personal history of nicotine dependence; Z98.61 Coronary angioplasty status